=== PATIENT | male | born 1960 | race American Indian/Alaskan Native ===

== ENCOUNTER 2018-07-27 12:23 | Day surgery (SDC) | payer OTHER, SELFPAY ==
--- NOTE | 2018-07-27 12:43 | Emergency Department Report ---
Blank Doc - Documentation Documentation: This is a 58-year-old male that presents with chest pain with SOB. HX of card iac stents and NC. Last career specialist was a while ago due to the finacial expense. This initial assessment/diagnostic orders/clinical plan/treatment(s) is/are subject to change based on patient's health status, clinical progression and re- assessment by fellow clinical providers in the ED. Further treatment and workup at subsequent clinical providers discretion. Patient/guardians urged not to el ope from the ED as their condition may be serious if not clinically assessed and managed. Initial orders include: 1- Patient sent to MAIN ED for further evaluation and treatment 2- labs 3- EKG 4- CXR
[2018-07-27 13:11] LABS: Basophils % (Auto) 1.1 % (0.0-1.8); Eosinophils # (Auto) 0.1 K/mm3 (0.0-0.4); Eosinophils % (Auto) 1.5 % (0.0-4.3); Hematocrit 41.7 % (35.5-45.6); Hemoglobin 14.1 gm/dl (11.8-15.2); Lymphocytes # (Auto) 1.4 K/mm3 (1.2-5.4); Mean Corpuscular HGB Conc 34 % (32-34); Mean Corpuscular Volume 94 fl (84-94); Monocytes # (Auto) 0.5 K/mm3 (0.0-0.8); Monocytes % (Auto) 12.9 % (0.0-7.3); Platelet Count 239 K/mm3 (140-440); Red Blood Count 4.43 M/mm3 (3.65-5.03); Red Cell Distribution Width 13.7 % (13.2-15.2)
--- NOTE | 2018-07-27 13:11 | XRay Report ---
Chest 2 views: History: Chest pain. Findings: Normal cardiomediastinal silhouette the trachea is midline. No consolidation, pneumothorax or pleural effusion. Impression: No acute cardiopulmonary findings.
[2018-07-27 13:23] LABS: INR 0.93 (0.87-1.13); Partial Thromboplastin Time 27.3 Sec. (24.2-36.6)
[2018-07-27 13:35] LABS: BUN/Creatinine Ratio 9; Blood Urea Nitrogen 7 mg/dL (9-20); Calcium 8.7 mg/dL (8.4-10.2); Hemolysis Index 9
[2018-07-27 14:31] VITALS: BP 151/92
--- NOTE | 2018-07-27 14:32 | Emergency Department Report ---
ED Chest Pain HPI - General Chief Complaint: Chest Pain Stated Complaint: CHEST PAIN/DIZZY Time Seen by Provider: 07/27/18 12:41 Source: patient Mode of arrival: Ambulatory Limitations: No Limitations - History of Present Illness Initial Comments: Mr. Price is a 58 yo male who has hx of CO March s/p 3 stents, HTN. He presents today with indigestion type chest pain during exertion and at rest. No dyspnea. 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 DBP 117 mm HG according to his report. Juanita n was episodic today. MIld. He attributes the pain to new medication, steroids for eye injury which occurred 3 weeks ago, requiring 3 surgeries. Feels well now. Chest pain first occurred this morning 4 AM. MD Complaint: chest pain -: Gradual, This morning Onset: during rest, during exertion Pain Location: substernal Pain Radiation: none Severity: mild Severity scale (0 -10): 1 Quality: other (indigestion) Consistency: intermittent, now resolved Improves With: nothing Worsens With: nothing Treatments Prior to Arrival: none - Related Data Previous Rx's Medication Instructions Recorded Last Taken Type Aspirin [Aspirin BABY CHEW TAB] 81 mg PO QDAY #30 tab.chew 04/04/18 Unknown Rx AtorvaSTATin [Lipitor] 40 mg PO QHS #30 tablet 04/04/18 Unknown Rx ISOSORBIDE MONOnitrate [Imdur ER] 30 mg PO DAILY #30 tab.er.24h 04/04/18 Unknown Rx Lisinopril [Zestril TAB] 2.5 mg PO QDAY #30 tab 04/04/18 Unknown Rx Metoprolol [Lopressor TAB] 25 mg PO BID #60 tablet 04/04/18 Unknown Rx Ticagrelor [Brilinta] 90 mg PO BID #60 tablet 04/04/18 Unknown Rx Allergies Allergy/AdvReac Type Severity Reaction Status Date / Time Penicillins Allergy Unknown Verified 04/02/18 02:46 Heart Score - HEART Score History: Slightly suspicious EKG: Normal Age: 45-65 Risk factors: > 3 risk factors or hx of atherosclerotic disease Troponin: < normal limit HEART Score: 3 ED Review of Systems ROS: Stated complaint: CHEST PAIN/DIZZY Other details as noted in HPI Comment: All other systems reviewed and negative Constitutional: denies: fever, malaise Respiratory: denies: cough Cardiovascular: chest pain ED Past Medical Hx - Past Medical History Previous Medical History?: Yes Hx Hypertension: Yes Hx Heart Attack/AMI: Yes (3 stents) Additional medical history: elevated cholesterol - Surgical History Past Surgical History?: Yes Additional Surgical History: left eye injury at work - Social History Smoking Status: Never Smoker Substance Use Type: None - Medications Home Medications: Home Medications Medication Instructions Recorded Confirmed Last Taken Type Aspirin [Aspirin BABY CHEW TAB] 81 mg PO QDAY #30 tab.chew 04/04/18 Unknown Rx AtorvaSTATin [Lipitor] 40 mg PO QHS #30 tablet 04/04/18 Unknown Rx ISOSORBIDE MONOnitrate [Imdur ER] 30 mg PO DAILY #30 tab.er.24h 04/04/18 Unknown Rx Lisinopril [Zestril TAB] 2.5 mg PO QDAY #30 tab 04/04/18 Unknown Rx Metoprolol [Lopressor TAB] 25 mg PO BID #60 tablet 04/04/18 Unknown Rx Ticagrelor [Brilinta] 90 mg PO BID #60 tablet 04/04/18 Unknown Rx ED Physical Exam - General Limitations: No Limitations General appearance: alert, in no apparent distress - Head Head exam: Present: atraumatic, normocephalic - Eye Eye exam: Present: normal appearance - ENT ENT exam: Present: mucous membranes moist - Neck Neck exam: Present: normal inspection, full ROM - Respiratory Respiratory exam: Present: normal lung sounds bilaterally. Absent: respiratory distress, wheezes, rales, rhonchi - Cardiovascular Cardiovascular Exam: Present: regular rate, normal rhythm, normal heart sounds. Absent: systolic murmur, diastolic murmur, rubs, gallop - GI/Abdominal GI/Abdominal exam: Present: soft, normal bowel sounds. Absent: distended, tenderness, guarding, rebound - Rectal Rectal exam: Present: deferred - Extremities Exam Extremities exam: Present: normal inspection - Back Exam Back exam: Present: normal inspection - Neurological Exam Neurological exam: Present: alert, oriented X3 - Psychiatric Psychiatric exam: Present: normal affect, normal mood - Skin Skin exam: Present: warm, dry, intact, normal color. Absent: rash ED Course Vital Signs 07/27/18 12:39 Temperature 98.1 F Pulse Rate 61 Respiratory 16 Rate Blood Pressure 156/95 O2 Sat by Pulse 98 Oximetry CHRIS score - Chris Score Age > 65: (0) No Aspirin use within the Past 7 Days: (0) No 3 or more CAD Risk Factors: (0) No 2 or more Angina events in past 24 hrs: (0) No Known CAD with more than 50% Stenosis: (0) No Elevated Cardiac Markers: (0) No ST Deviation Greater than 0.5mm: (1) Yes CHRIS Score: 1 ED Medical Decision Making - Lab Data Result diagrams: 07/27/18 12:54 07/27/18 12:54 Laboratory Results - last 24 hr 07/27/18 07/27/18 07/27/18 12:54 12:54 12:54 WBC 3.9 L RBC 4.43 Hgb 14.1 Hct 41.7 MCV 94 MCH 32 MCHC 34 RDW 13.7 Plt Count 239 Lymph % (Auto) 36.0 H [place] % (Auto) 12.9 H Eos % (Auto) 1.5 Baso % (Auto) 1.1 Lymph # 1.4 [place] # 0.5 Eos # 0.1 Baso # 0.0 Seg Neutrophils % 48.5 Seg Neutrophils # 1.9 PT 13.0 INR 0.93 APTT 27.3 Sodium 139 Potassium 4.2 Chloride 99.0 Carbon Dioxide 28 Anion Gap 16 BUN 7 L Creatinine 0.8 Estimated GFR > 60 BUN/Creatinine Ratio 9 Glucose 92 Calcium 8.7 Troponin T < 0.010 - EKG Data 07/27/18 14:26 NSR rate 60 bpm left axis no ST elevation no signs of ischemia inferior q waves - Radiology Data Radiology results: report reviewed nap portable chest - Medical Decision Making Mr. Price presents mild indigestion atypical for ACS. serial troponins x 2 negative recent STEMI, RCA stented, multivessel disease on cardiac cath 03/2018 According to recent cardiology evaluation, Mr. Price has nonobstructive disease of the proximal LAD. Medical therapy and aggressive risk modification recommended at that time for optimal care of atherosclerosis Mr. Price has been compliant with his medication. He is appropriately vigilant with hypertension with consideration of adverse effect of steroids. Blood pressure today is 156/97 which is elevated compared to previous blood pressure 124/73 documented in March. I explained that if he decides to continue with prednisone, he should either take a second dose of lisinopril. He understands to call 911 if chest pain recurs. Critical care attestation.: If time is entered above; I have spent that time in minutes in the direct care of this critically ill patient, excluding procedure time. ED Disposition Clinical Impression: Chest pain, Adverse effects of medication, Hypertensive urgency, History of CO (myocardial infarction) Disposition: DC-01 TO HOME OR SELFCARE Is pt being admited?: No Does the pt Need Aspirin: No Condition: Stable Instructions: Chest Pain (ED) Additional Instructions: Please increase your lisinopril dose if you decide to continue steroid therapy.
[2018-07-27 15:34] LABS: Bilirubin,Urine NEG (Negative); Blood,Urine NEG (Negative); Color,Urine Straw (Yellow); Protein,Urine <15 mg/dL mg/dL (Negative); Urobilinogen,Urine < 2.0 mg/dL (<2.0)
== END 2018-07-27 15:34 | disposition home or self-care (01) ==
LOC: ED 12:23 → CATH 12:23 → EDSTATUS 14:07 → ED 15:35
PROVIDERS: ATTEND Emergency Medicine
DX: R07.89 Other chest pain (principal); T50.905A Adverse effect of unspecified drugs, medicaments and biological substances, initial encounter; I16.0 Hypertensive urgency; I25.2 Old myocardial infarction; I10 Essential (primary) hypertension; E78.00 Pure hypercholesterolemia, unspecified; Z88.0 Allergy status to penicillin; Y92.89 Other specified places as the place of occurrence of the external cause
CPT/HCPCS: 36415; 71046; 80048; 81001; 84484; 85025; 85610; 85730; 93005; 93010

== ENCOUNTER 2018-07-29 09:24 | Inpatient (IN) | payer SELFPAY ==
--- NOTE | 2018-07-29 09:30 | Emergency Department Report ---
ED General Adult HPI - General Chief complaint: Chest Pain Stated complaint: POSS STEMI Time Seen by Provider: 07/29/18 09:30 Source: EMS Mode of arrival: Stretcher Limitations: No Limitations - History of Present Illness Initial comments: This is a 58-year-old male with a history of STEMI 04/02/2018. Although he states he had 3 stents placed, it appears he had an RCA stent and LAD disease for which medical management was recommended. He was cared for by Gisela Mckay at that time. The patient states that approximately one hour prior to his arrival he developed substernal chest pressure which radiated to his right arm. This was associated with diaphoresis nausea vomiting. He was transported to this facility via medics who gave him 320 40 g of aspirin as well as nitroglycerin. There was some benefit. He arrives at the emergency department with persistent pain. His prehospital EKG was consistent with hyperacute T-wave syndrome affecting the anteroseptal leads with reciprocal changes. Therefore a code STEMI was called. I spoke to Dr. Rubio who concurred with this management. On arrival the patient did look slightly clammy but not diaphoretic. He stated he did have some persistent pressure. He was being prepared for cardiac catheterization. A 12-lead EKG was obtained which interestingly did show improvement of his ST segment elevation in the septal leads as well as his reciprocal changes. -: Gradual Associated Symptoms: denies other symptoms - Related Data Previous Rx's Medication Instructions Recorded Last Taken Type Aspirin [Aspirin BABY CHEW TAB] 81 mg PO QDAY #30 tab.chew 04/04/18 Unknown Rx AtorvaSTATin [Lipitor] 40 mg PO QHS #30 tablet 04/04/18 Unknown Rx ISOSORBIDE MONOnitrate [Imdur ER] 30 mg PO DAILY #30 tab.er.24h 04/04/18 Unknown Rx Lisinopril [Zestril TAB] 2.5 mg PO QDAY #30 tab 04/04/18 Unknown Rx Metoprolol [Lopressor TAB] 25 mg PO BID #60 tablet 04/04/18 Unknown Rx Ticagrelor [Brilinta] 90 mg PO BID #60 tablet 04/04/18 Unknown Rx Allergies Allergy/AdvReac Type Severity Reaction Status Date / Time Penicillins Allergy Unknown Verified 04/02/18 02:46 ED Review of Systems ROS: Stated complaint: POSS STEMI Other details as noted in HPI Constitutional: denies: chills, fever Eyes: denies: eye pain, eye discharge, vision change ENT: denies: ear pain, throat pain Respiratory: denies: cough, shortness of breath, wheezing Cardiovascular: chest pain. denies: palpitations Endocrine: no symptoms reported Gastrointestinal: denies: abdominal pain, nausea, diarrhea Genitourinary: denies: urgency, dysuria Musculoskeletal: denies: back pain, joint swelling, arthralgia Skin: denies: rash, lesions Neurological: denies: headache, weakness, paresthesias Psychiatric: denies: anxiety, depression Hematological/Lymphatic: denies: easy bleeding, easy bruising ED Past Medical Hx - Past Medical History Previous Medical History?: Yes Hx Hypertension: Yes Hx Heart Attack/AMI: Yes (3 stents) Additional medical history: elevated cholesterol - Surgical History Past Surgical History?: Yes Additional Surgical History: left eye injury at work. Patient states that he sustained trauma to his left eye 2 weeks ago which required surgery. He cannot be more specific as to the type of injury he sustained. - Social History Smoking Status: Never Smoker Substance Use Type: None - Medications Home Medications: Home Medications Medication Instructions Recorded Confirmed Last Taken Type Aspirin [Aspirin BABY CHEW TAB] 81 mg PO QDAY #30 tab.chew 04/04/18 Unknown Rx AtorvaSTATin [Lipitor] 40 mg PO QHS #30 tablet 04/04/18 Unknown Rx ISOSORBIDE MONOnitrate [Imdur ER] 30 mg PO DAILY #30 tab.er.24h 04/04/18 Unknown Rx Lisinopril [Zestril TAB] 2.5 mg PO QDAY #30 tab 04/04/18 Unknown Rx Metoprolol [Lopressor TAB] 25 mg PO BID #60 tablet 04/04/18 Unknown Rx Ticagrelor [Brilinta] 90 mg PO BID #60 tablet 04/04/18 Unknown Rx ED Physical Exam - General Limitations: No Limitations General appearance: alert, in no apparent distress - Head Head exam: Present: atraumatic, normocephalic - Eye Eye exam: Present: other (eye patch. He cannot open left eye to examine). Absent: scleral icterus - ENT ENT exam: Present: mucous membranes moist, other (eye patch O.S.) - Neck Neck exam: Present: normal inspection - Respiratory Respiratory exam: Present: normal lung sounds bilaterally. Absent: respiratory distress - Cardiovascular Cardiovascular Exam: Present: regular rate, normal rhythm. Absent: systolic murmur, diastolic murmur, rubs, gallop - GI/Abdominal GI/Abdominal exam: Present: soft, normal bowel sounds. Absent: distended, tenderness, guarding, rebound, rigid - Rectal Rectal exam: Present: deferred - Extremities Exam Extremities exam: Present: normal inspection - Back Exam Back exam: Present: normal inspection. Absent: CVA tenderness (R), CVA tenderness (L) - Neurological Exam Neurological exam: Present: alert, oriented X3, CN II-XII intact. Absent: motor sensory deficit - Psychiatric Psychiatric exam: Present: normal affect, normal mood - Skin Skin exam: Present: warm, dry, intact, normal color. Absent: rash ED Course Vital Signs 07/29/18 07/29/18 07/29/18 09:28 09:30 09:45 Temperature 98.1 F Pulse Rate 61 Respiratory 18 16 Rate Blood Pressure 148/98 151/106 166/112 Blood Pressure 151/106 [Left] O2 Sat by Pulse 100 100 Oximetry - Reevaluation(s) Reevaluation #1: Patient sent Lab further evaluation by Dr. Rubio stable condition 07/29/18 09:44 ED Medical Decision Making - EKG Data -: EKG Interpreted by Me EKG shows normal: sinus rhythm - EKG Data Interpretation: other (consistent with anteroseptal ST elevation GA) Critical Care Time: Yes Critical care time in (mins) excluding proc time.: 30 Critical care attestation.: If time is entered above; I have spent that time in minutes in the direct care of this critically ill patient, excluding procedure time. ED Disposition Clinical Impression: ST elevation GA (STEMI) Qualifiers: Involved coronary artery: unspecified coronary artery Qualified Code(s): I21.3 - ST elevation (STEMI) myocardial infarction of unspecified site Disposition: -09 OP ADMIT IP TO THIS HOSP Is pt being admited?: Yes Does the pt Need Aspirin: Yes Condition: Stable Time of Disposition: 09:46
[2018-07-29] MEDS ORDERED: ZOFRAN ONE (09:32)
[2018-07-29] MEDS ORDERED: NITRO-BID 2% TP ONE ×2 (09:32→09:52)
[2018-07-29] MEDS ORDERED: MORPHINE ONE ×2 (09:32→13:58)
[2018-07-29] MEDS ORDERED: ZOFRAN IV ONE (09:52)
[2018-07-29] MEDS ORDERED: MORPHINE IV ONE (09:52)
[2018-07-29] MEDS ORDERED: VERSED ONE (10:04)
[2018-07-29] MEDS ORDERED: HEPARIN/NS 5000 UNIT/500ML(CATH LAB) 1,000 ML IR ONE (10:04)
[2018-07-29] MEDS ORDERED: XYLOCAINE 2% INFILTRATI ONE (10:06)
[2018-07-29] MEDS ORDERED: NITROGLYCERIN SYRINGE 3 ML ONE (10:06)
[2018-07-29] MEDS ORDERED: SUBLIMAZE ONE (10:06)
[2018-07-29] MEDS ORDERED: NACL 0.9% 500 ML 500 ML ONE (10:06)
[2018-07-29] MEDS ORDERED: CALAN ONE (10:06)
[2018-07-29] MEDS: HEPARIN 10,000 UNITS/10 ML ONE ×2 (10:19→10:25)
[2018-07-29] MEDS ORDERED: HEPARIN/ 0.45% NACL-25,000 UNIT/500 ML 25,000 UNIT/500 ML BAG ONE (10:50)
[2018-07-29] MEDS ORDERED: HEPARIN/NS 5000 UNIT/500ML(CATH LAB) 500 ML IR ONE (10:50)
[2018-07-29 10:51] LABS: Hematocrit 40.6 % (35.5-45.6); Hemoglobin 13.8 gm/dl (11.8-15.2); INR 0.89 (0.87-1.13); Mean Corpuscular HGB Conc 34 % (32-34); Mean Corpuscular Volume 94 fl (84-94); Platelet Count 272 K/mm3 (140-440); Red Blood Count 4.33 M/mm3 (3.65-5.03); Red Cell Distribution Width 13.6 % (13.2-15.2)
[2018-07-29 10:52] LABS: Partial Thromboplastin Time 24.9 Sec. (24.2-36.6)
[2018-07-29] MEDS ORDERED: HEPARIN 10,000 UNITS/10 ML ONE (10:53)
[2018-07-29] MEDS ORDERED: AGGRASTAT DRIP (12.5 MG/250 ML) 12,500 MCG/250 ML BAG IV ONE (10:53)
[2018-07-29 10:57] LABS: Creatine Kinase MB 4.9 ng/mL (0.0-4.0)
[2018-07-29 10:58] LABS: BUN/Creatinine Ratio 15; Blood Urea Nitrogen 12 mg/dL (9-20); Calcium 8.7 mg/dL (8.4-10.2); Hemolysis Index 4
[2018-07-29 10:59] LABS: Alanine Aminotransferase 23 units/L (7-56); Albumin 4.4 g/dL (3.9-5); BUN/Creatinine Ratio 15; Blood Urea Nitrogen 12 mg/dL (9-20); Calcium 8.7 mg/dL (8.4-10.2); Hemolysis Index 4
[2018-07-29 11:01] LABS: Alanine Aminotransferase 23 units/L (7-56); Albumin 4.3 g/dL (3.9-5)
[2018-07-29 11:05] LABS: Bilirubin,Direct < 0.2 mg/dL (0-0.2)
--- NOTE | 2018-07-29 11:12 | Event Note ---
Date: 07/29/18 consult and cath dictated d/w Dr. Wild ([place] pt)
[2018-07-29] MEDS: EFFIENT PO ONE ×2 (11:16→11:20)
[2018-07-29] MEDS: ALUM-MAG HYDROX-SIMETH 200-200-20MG/5ML ONE ×2 (11:16→11:20)
--- NOTE | 2018-07-29 11:45 | Event Note ---
Date: 07/29/18 Pt just notified me that he had recent left eye surgery. He is unclear of the details. I evaluated his eye - no evidence of bleeding at this time. Will continue to watch this. Have CCU staff monitor closely.
--- NOTE | 2018-07-29 13:18 | Cardiac Catherization Report ---
CARDIAC CATHETERIZATION PRIMARY PUBLIC HEALTH DIETITIAN: Dr. To. REFERRING PHYSICIAN: Dr. Kumar. INDICATION FOR PROCEDURE: The patient is a 58-year-old -[place] gentleman with history of PCI of the right coronary presents with anterior ST elevation myocardial infarction. STEMI protocol initiated. Heparin and aspirin loaded. PROCEDURE IN DETAIL: The patient was brought to the laborer tanbark in urgent fashion, loaded with heparin and aspirin, and prepped and draped in sterile fashion. An 8 mL of 2% lidocaine used to anesthetize the right groin. A standard 6-[place] hydrophilic sheath used to cannulate the right common femoral artery via modified Seldinger technique. All exchanges performed to exchange a J-tip guidewire. JL3.5 catheter used to engage the left main. No damping or ventricularization. Cineangiography performed in multiple projections. JR4 catheter used to cross the aortic valve under fluoroscopic guidance. Left ventriculography performed in 30 WRIGHT and 30 AUDRA projections via hand injections. Catheter flushed. Manual pullback performed with continuous pressure monitoring. Catheter used to engage the right coronary. No damping or ventricularization. Cineangiography performed in multiple projections. I directly supervised the administration of moderate sedation from 10:12-11:00 a.m. with fentanyl and Versed. DATA: Aortic pressure is 140/80, LV pressure is 140, LVEDP of 30 mmHg. Left ventriculography reveals severe anterior and anteroapical dyskinesis. Ejection fraction estimated at 30-35%. CORONARY ANATOMY: This is a right dominant system. Right coronary is a large vessel, courses AV groove, distally bifurcates into posterolateral and posteromedial branches. There is a 90% ostial posterolateral stenosis through jailed stent but multiple stents in the proximal RCA and right PDA are patent. Collaterals are noted to the LAD. Left main is patent, bifurcates the left anterior descending and left circumflex. Left circumflex is a moderate sized vessel, courses AV groove. There is a 25% mid left circumflex stenosis. LAD has atherothrombotic occlusion proximally. At this point, we turned our attention to PCI. Heparin loaded, single bolus of Aggrastat. Labs are pending. Abnormal ACT is confirmed. The patient loaded with aspirin. This is a bifurcation lesion. We wired the moderate sized diagonal with a Prowater wire. We used a BMW wire to wire the true LAD, ballooned the LAD on the BMW wire. ROSEMARIE 3 flow returned. I used a 2.75 x 26 Jayme drug-eluting stent into the LAD. Excellent angiographic result. The diagonal was pinched but patent and with ROSEMARIE 3 flow. I did not believe provisional stenting or ballooning is necessary at this point and the risk likely outweighs the benefit. At this point, intravascular ultrasound was performed and multiple passes were made, reveals a apposed well expanded stent, mild disease in the proximal LAD and left main. No dissection, no complications identified, ROSEMARIE 3 flow throughout. Given significant LV dysfunction, elevated LVEDP, proximal LAD occlusion, I decided to put an intraaortic balloon pump under fluoroscopic guidance. At this point, the patient is clinically stable, chest pain free, electrical and hemodynamically stable. CONCLUSIONS: 1. Acute atherothrombotic occlusion of the proximal LAD in the setting of an anterior ST elevation myocardial infarction. 2. Successful IVUS guided PCI of the proximal LAD with placement of drug-eluting stent ([place] 2.75 x 26) with excellent final angiographic and ultrasonographic results, ROSEMARIE 3 flow, 0% residual stenosis. 4. Left ventriculography reveals severe anterior and anteroapical dyskinesis. Ejection fraction of 30-35%. 5. Patent stents in the right coronary with 90% jailed posterolateral branch. 6. Successful intraaortic balloon pump placement. Continue aspirin. We will add Effient. He was on Brilinta in the past. I had a long discussion regarding medication compliance, IV heparin due to balloon pump placement. The patient is clinically stable, chest pain free, doing well. We will discuss with [facility] as this patient is known to them. Follow up labs. Results of procedure explained in length to the patient and family. All questions and concerns were addressed. JOB# [id number] SBConcepcion/[id number]
--- NOTE | 2018-07-29 13:43 | History and Physical Report ---
History of Present Illness Date of examination: 07/29/18 Date of admission: 07/29/18 09:53 Chief complaint: Chest pain History of present illness: 58-year-old male with a history of STEMI 04/02/2018 comes in for CP one hour prior to his arrival. He developed substernal chest pressure which radiated to his right arm. This was associated with diaphoresis nausea vomiting. He was transported to this facility via medics who gave him 320 40 g of aspirin as well as nitroglycerin. Some improvement in his symptoms. He arrives at the emergency department with persistent pain. His prehospital EKG was consistent with hyperacute T-wave syndrome affecting the anteroseptal leads with reciprocal changes. Therefore a code STEMI was called. patient being taken to medical laboratory technicians for PCI by Dr Anuel Rubio. On arrival the patient did look slightly clammy but not diaphoretic. He stated he did have some persistent pressure. He was being prepared for cardiac catheterization. A 12-lead EKG was obtained which interestingly did show improvement of his ST segment elevation in the septal leads as well as his reciprocal changes. Past Medical History Previous Medical History?: Yes Hx Hypertension: Yes Hx Heart Attack/AMI: Yes (3 stents) Additional medical history: elevated cholesterol Surgical History Past Surgical History?: Yes Additional Surgical History: left eye injury at work. Patient states that he sustained trauma to his left eye 2 weeks ago which required surgery. He cannot be more specific as to the type of injury he sustained. Social History Smoking Status: Never Smoker Substance Use Type: None Medications Home Medications: Home Medications Medication Instructions Recorded Confirmed Last Taken Type Aspirin [Aspirin BABY CHEW TAB] 81 mg PO QDAY #30 tab.chew 04/04/18 Unknown Rx AtorvaSTATin [Lipitor] 40 mg PO QHS #30 tablet 04/04/18 Unknown Rx ISOSORBIDE MONOnitrate [Imdur ER] 30 mg PO DAILY #30 tab.er.24h 04/04/18 Unknown Rx Lisinopril [Zestril TAB] 2.5 mg PO QDAY #30 tab 04/04/18 Unknown Rx Metoprolol [Lopressor TAB] 25 mg PO BID #60 tablet 04/04/18 Unknown Rx Ticagrelor [Brilinta] 90 mg PO BID #60 tablet 04/04/18 Unknown Rx Review of Systems ROS: Stated complaint: POSS STEMI Other details as noted in HPI Constitutional: denies: chills, fever Eyes: denies: eye pain, eye discharge, vision change ENT: denies: ear pain, throat pain Respiratory: denies: cough, shortness of breath, wheezing Cardiovascular: chest pain. denies: palpitations Endocrine: no symptoms reported Gastrointestinal: denies: abdominal pain, nausea, diarrhea Genitourinary: denies: urgency, dysuria Musculoskeletal: denies: back pain, joint swelling, arthralgia Skin: denies: rash, lesions Neurological: denies: headache, weakness, paresthesias Psychiatric: denies: anxiety, depression Hematological/Lymphatic: denies: easy bleeding, easy bruising Medications and Allergies Allergies Allergy/AdvReac Type Severity Reaction Status Date / Time Penicillins Allergy Unknown Verified 04/02/18 02:46 Home Medications Medication Instructions Recorded Confirmed Last Taken Type Aspirin [Aspirin BABY CHEW TAB] 81 mg PO QDAY #30 tab.chew 04/04/18 07/29/18 07/29/18 Rx AtorvaSTATin [Lipitor] 40 mg PO QHS #30 tablet 04/04/18 07/29/18 1 Week Ago Rx ~07/22/18 ISOSORBIDE MONOnitrate [Imdur ER] 30 mg PO DAILY #30 tab.er.24h 04/04/18 07/29/18 1 Week Ago Rx ~07/22/18 Lisinopril [Zestril TAB] 2.5 mg PO QDAY #30 tab 04/04/18 07/29/18 1 Week Ago Rx ~07/22/18 Metoprolol [Lopressor TAB] 25 mg PO BID #60 tablet 04/04/18 07/29/18 1 Day Ago Rx ~07/28/18 Ticagrelor [Brilinta] 90 mg PO BID #60 tablet 04/04/18 07/29/18 2 Days Ago Rx ~07/27/18 Brimonidine/Timolol 0.2-0.5% 1 drops OP TID 07/29/18 07/29/18 07/29/18 12:00 History [Combigan 0.2-0.5%] Active Meds: Active Medications Aspirin (Baby Aspirin) 81 mg PO QDAY [facility] Atorvastatin Calcium (Lipitor) 40 mg PO QHS [place] Prasugrel (Effient) 10 mg PO QDAY [facility] Exam - Constitutional Vitals: Temp Pulse Resp BP Pulse Ox 97.8 F 72 20 140/91 100 07/29/18 12:23 07/29/18 13:00 07/29/18 13:00 07/29/18 13:00 07/29/18 13:00 General appearance: Present: no acute distress, well-nourished - EENT Eyes: Present: PERRL ENT: hearing intact, clear oral mucosa - Neck Neck: Present: supple, normal ROM - Respiratory Respiratory effort: normal Respiratory: bilateral: CTA - Cardiovascular Heart rate: 78 Rhythm: regular Heart Sounds: Present: S1 & S2. Absent: rub, click - Extremities Extremities: no ischemia, pulses intact, pulses symmetrical, No edema Peripheral Pulses: within normal limits - Abdominal General gastrointestinal: Present: soft, non-tender, non-distended, normal bowel sounds Male genitourinary: Present: normal - Rectal Rectal Exam: deferred - Integumentary Integumentary: Present: clear, warm, dry - Musculoskeletal Musculoskeletal: gait normal, strength equal bilaterally - Psychiatric Psychiatric: appropriate mood/affect, intact judgment & insight - Neurologic Neurologic: CNII-XII intact, moves all extremities Results - Labs CBC & Chem 7: 07/30/18 02:55 07/30/18 02:55 Labs: Laboratory Last Values WBC 5.0 K/mm3 (4.5-11.0) 07/29/18 09:23 RBC 4.33 M/mm3 (3.65-5.03) 07/29/18 09:23 Hgb 13.8 gm/dl (11.8-15.2) 07/29/18 09:23 Hct 40.6 % (35.5-45.6) 07/29/18 09:23 MCV 94 fl (84-94) 07/29/18 09:23 MCH 32 pg (28-32) 07/29/18 09:23 MCHC 34 % (32-34) 07/29/18 09:23 RDW 13.6 % (13.2-15.2) 07/29/18 09:23 Plt Count 272 K/mm3 (140-440) 07/29/18 09:23 Baso % (Auto) [place] 07/29/18 09:23 PT 12.6 Sec. (12.2-14.9) 07/29/18 09:23 INR 0.89 (0.87-1.13) 07/29/18 09:23 APTT 24.9 Sec. (24.2-36.6) 07/29/18 09:23 Sodium 140 mmol/L (137-145) 07/29/18 09:23 Potassium 3.9 mmol/L (3.6-5.0) 07/29/18 09:23 Chloride 102.8 mmol/L (98-107) 07/29/18 09:23 Carbon Dioxide 27 mmol/L (22-30) 07/29/18 09:23 Anion Gap 14 mmol/L 07/29/18 09:23 BUN 12 mg/dL (9-20) 07/29/18 09:23 Creatinine 0.8 mg/dL (0.8-1.5) 07/29/18 09:23 Estimated GFR > 60 ml/min 07/29/18 09:23 BUN/Creatinine Ratio 15 % 07/29/18 09:23 Glucose 138 mg/dL (75-100) H 07/29/18 09:23 Calcium 8.7 mg/dL (8.4-10.2) 07/29/18 09:23 Total Bilirubin 0.50 mg/dL (0.1-1.2) 07/29/18 09:23 Direct Bilirubin < 0.2 mg/dL (0-0.2) 07/29/18 09:23 AST 18 units/L (5-40) 07/29/18 09:23 ALT 23 units/L (7-56) 07/29/18 09:23 Alkaline Phosphatase 66 units/L (35-129) 07/29/18 09:23 Total Creatine Kinase 202 units/L (55-170) H 07/29/18 09:23 CK-MB (CK-2) 4.9 ng/mL (0.0-4.0) H 07/29/18 09:23 CK-MB (CK-2) Rel Index 2.4 (0-4) 07/29/18 09:23 Troponin T < 0.010 ng/mL (0.00-0.029) 07/29/18 09:23 Total Protein 7.2 g/dL (6.3-8.2) 07/29/18 09:23 Albumin 4.3 g/dL (3.9-5) 07/29/18 09:23 Albumin/Globulin Ratio 1.5 % 07/29/18 09:23 Blood Type O POSITIVE 07/29/18 09:23 Antibody Screen Negative 07/29/18 09:23 - Imaging and Cardiology EKG: report reviewed (STEMI Anterior) Assessment and Plan Advance Directives: Yes (FC) VTE prophylaxis?: Chemical Plan of care discussed with patient/family: Yes - Patient Problems (1) ST elevation PA (STEMI) Current Visit: Yes Status: Acute Qualifiers: Involved coronary artery: unspecified coronary artery Qualified Code(s): I21.3 - ST elevation (STEMI) myocardial infarction of unspecified site Plan to address problem: Had PCI and Stents Cardiac cath showed acute atherothrombotic occlusion of the proximal LAD in the setting of an anterior ST elevation myocardial infarction. Successful IVUS guided PCI of the proximal LAD with placement of drug-eluting stent with excellent final angiographic and ultrasonographic results, ROSEMARIE-3 flow, 0% residual stenosis. Left ventriculography revealed severe anterior and anteroseptal dyskinesis. Ejection fraction of 30-35%. Patent stents in the right coronary with 90% patency Successful intra-aortic balloon pump placement (2) Hypertension Current Visit: Yes Status: Chronic Qualifiers: Hypertension type: essential hypertension Qualified Code(s): I10 - Essential (primary) hypertension Plan to address problem: Continue antihypertensives and keep blood pressure under control (3) Coronary artery disease Current Visit: Yes Status: Chronic Qualifiers: Coronary Disease-Associated Artery/Lesion type: unspecified vessel or lesion type Plan to address problem: [facility] (4) Hyperlipidemia Current Visit: Yes Status: Chronic Qualifiers: Hyperlipidemia type: mixed hyperlipidemia Qualified Code(s): E78.2 - Mixed hyperlipidemia Plan to address problem: Statins to continue (5) DVT prophylaxis Current Visit: Yes Status: Acute Plan to address problem: Patient on IV heparin and GI prophylaxis
[2018-07-29] MEDS ORDERED: AMBIEN PO PRN (13:44)
[2018-07-29] MEDS ORDERED: TYLENOL PO PRN (13:44)
[2018-07-29] MEDS ORDERED: ZOFRAN IV PRN (13:44)
[2018-07-29] MEDS ORDERED: SODIUM CHLORIDE FLUSH SYRINGE 10 ML IV PRN (13:44)
[2018-07-29 14:50] LABS: Basophils % (Manual) 0 % (0.0-1.8); Platelet Estimate Consistent w Auto; RBC Morphology Normal; Total Cells Counted 100
--- NOTE | 2018-07-29 16:14 | XRay Report ---
EXAM: XR CHEST 1V AP HISTORY: Chest Pain TECHNIQUE: AP CXR dated 07/29/2018 at 3:01 PM. COMPARISON: None available. FINDINGS: The heart size and mediastinum are within normal limits. The lung castellanos and costophrenic angles are clear. There is no acute parenchymal infiltrate, pleural effusion, or pneumothorax seen. The visua lized bony structures are within normal limits. IMPRESSION: 1. No evidence for acute cardiopulmonary disease seen. This document is electronically signed by Joann Gonsalez MD., July 29 2018 04:13:02 PM ET
[2018-07-29 16:27] LABS: Chol/HDL Ratio 2.16 %
[2018-07-29 20:11] LABS: Hematocrit 43.6 % (35.5-45.6); Hemoglobin 14.6 gm/dl (11.8-15.2)
--- NOTE | 2018-07-29 21:04 | Consultation ---
CARDIOLOGY CONSULTATION PRIMARY LINE INSTALLER REPAIRER: Poncho To MD PRIMARY PHYSICIAN: Unknown. ER PHYSICIAN: Dr. Kumar. REASON FOR CONSULTATION: Advice regarding chest pain and anterior ST elevation. HISTORY OF PRESENT ILLNESS: The patient is a 58-year-old -Portuguese gentleman with history of inferior STEMI last year status post multiple stents in his right coronary, presents here with multiple hours of chest pain and anterior ST elevation. STEMI protocol initiated. The patient loaded with aspirin, heparin, seen at bedside, continuous diaphoretic, complains of 8/10 chest pain, looks in distress. States it has been going on for hours. No back pain, no hematochezia, melena, hemoptysis, hematemesis. Had a recent left eye surgery. PAST MEDICAL HISTORY: Apparently hypertension, hyperlipidemia. Unclear who his primary is. SOCIAL HISTORY: Nonsmoker, nondrinker. ALLERGIES: ALLERGIC TO PENICILLIN. MEDICATIONS: Inpatient and outpatient medications reviewed. REVIEW OF SYSTEMS: As per HPI. PHYSICAL EXAMINATION: VITAL SIGNS: Blood pressure is 110/80, he is afebrile. Tele reveals sinus rhythm. O2 sat is 99% on room air. GENERAL: This is a middle-aged -Portuguese male in some distress due to chest pain. Alert and oriented x 3. HEENT: Sclerae anicteric. PERRLA. NECK: Supple. No mass. No JVD. CHEST: Clear to auscultation bilaterally. Good air movement. CARDIOVASCULAR: Regular rhythm, S1, S2. ABDOMEN: Soft, nontender, nondistended. Normoactive bowel sounds in 4 quadrants. No mass or bruits. EXTREMITIES: No cyanosis, clubbing, edema. Good peripheral pulses. SKIN: Intact. No rashes. LABORATORY DATA: Labs are pending. EKG reveals hyperacute T waves anteriorly with mild ST elevation and reciprocal lateral changes. ASSESSMENT AND PLAN: The patient is a pleasant 58-year-old -Portuguese male: 1. Acute anterior ST elevation myocardial infarction: STEMI protocol initiated. Aspirin and heparin loaded. 2. History of inferior ST elevation myocardial infarction in 03/2018, status post percutaneous coronary intervention to right coronary. 3. Hypertension. 4. Hyperlipidemia. Currently, the patient stopped taking his medications. At this point, further plans will be contingent on catheterization results. Risks, benefits, alternatives discussed. We will proceed urgently to left heart catheterization. JOB# [id number] SBConcepcion/NTS
[2018-07-29] MEDS ORDERED: HEPARIN/ 0.45% NACL-25,000 UNIT/500 ML 25,000 UNIT/500 ML BAG IV SCH (22:00)
[2018-07-29 22:03] LABS: Hematocrit 39.6 % (35.5-45.6); Hemoglobin 13.5 gm/dl (11.8-15.2)
[2018-07-29] MEDS: SODIUM CHLORIDE FLUSH SYRINGE 10 ML IV SCH (22:06)
[2018-07-29] MEDS: PEPCID IV SCH (22:06)
[2018-07-29] MEDS: NACL 0.9% 1000 ML 1,000 ML IV SCH (22:08)
[2018-07-30] MEDS: MORPHINE IV PRN (01:55)
[2018-07-30 02:07] LABS: Bilirubin,Urine NEG (Negative); Blood,Urine NEG (Negative); Color,Urine Yellow (Yellow); Mucus,Urine FEW /HPF; Protein,Urine <15 mg/dL mg/dL (Negative); Urobilinogen,Urine < 2.0 mg/dL (<2.0); WBC,Urine < 1.0 /HPF (0.0-6.0)
[2018-07-30 02:16] LABS: Amphetamine Screen,Urine PRESUMPTIVE NEGATIVE; Benzodiazepines Screen,Urine PRESUMPTIVE NEGATIVE; Cannabinoid Screen,Urine PRESUMPTIVE NEGATIVE; Cocaine Screen,Urine PRESUMPTIVE NEGATIVE; Methadone Screen,Urine PRESUMPTIVE NEGATIVE; Opiate Screen,Urine PRESUMPTIVE NEGATIVE
[2018-07-30 04:28] LABS: Basophils % (Auto) 0.3 % (0.0-1.8); Eosinophils % (Auto) 0.6 % (0.0-4.3); Hemoglobin 13.4 gm/dl (11.8-15.2); Lymphocytes # (Auto) 1.1 K/mm3 (1.2-5.4); Lymphocytes % (Auto) 19.3 % (13.4-35.0); Mean Corpuscular HGB Conc 33 % (32-34); Mean Corpuscular Volume 94 fl (84-94); Monocytes # (Auto) 0.7 K/mm3 (0.0-0.8); Monocytes % (Auto) 12.7 % (0.0-7.3); Platelet Count 223 K/mm3 (140-440); Red Blood Count 4.25 M/mm3 (3.65-5.03); Red Cell Distribution Width 13.5 % (13.2-15.2)
[2018-07-30 04:46] LABS: Creatine Kinase MB 47.8 ng/mL (0.0-4.0)
[2018-07-30 04:50] LABS: BUN/Creatinine Ratio 11; Blood Urea Nitrogen 9 mg/dL (9-20); Calcium 8.8 mg/dL (8.4-10.2); Hemolysis Index 10
[2018-07-30] MEDS: DILAUDID IV PRN ×2 (05:51→09:00)
[2018-07-30] MEDS: PEPCID IV SCH ×2 (10:05→21:38)
[2018-07-30] MEDS: BABY ASPIRIN PO SCH (10:06)
--- NOTE | 2018-07-30 10:13 | Consultation ---
History of Present Illness Consult date: 07/30/18 Reason for consult: chest pain, other (STEMI) History of present illness: Called to evaluate case of phase 58-year-old -Dominican male, with recent chest pain, STEMI for critical care monitoring. Patient reported to go to [facility] but not the ICU. Per notes, presents with "history of STEMI 04/02/2018. Although he states he had 3 stents placed, it appears he had an RCA stent and LAD disease for which medical management was recommended. He was cared for by Gisela Mckay at that time. The patient states that approximately one hour prior to his arrival he developed substernal chest pressure which radiated to his right arm. This was associated with diaphoresis nausea vomiting. He was transported to this facility via medics who gave him 320 40 g of aspirin as well as nitroglycerin. There was some benefit. He arrives at the emergency department with persistent pain. His prehospital EKG was consistent with hyperacute T-wave syndrome affecting the anteroseptal leads with reciprocal changes. Therefore a code STEMI was called. I spoke to Dr. Rubio who concurred with this management. On arrival the patient did look slightly clammy but not diaphoretic. He stated he did have some persistent pressure. Cardiac catheterization, now on our to pump at unit. A 12-lead EKG was obtained which interestingly did show improvement of his ST segment elevation in the septal leads as well as his reciprocal changes. Also a heparin drip. Hospital before by cardiology, he had prior eye surgery. No visual, respiratory or chest complaints at the present time Medications and Allergies Allergies Allergy/AdvReac Type Severity Reaction Status Date / Time Penicillins Allergy Unknown Verified 04/02/18 02:46 Home Medications Medication Instructions Recorded Confirmed Last Taken Type Aspirin [Aspirin BABY CHEW TAB] 81 mg PO QDAY #30 tab.chew 04/04/18 07/29/18 07/29/18 Rx AtorvaSTATin [Lipitor] 40 mg PO QHS #30 tablet 04/04/18 07/29/18 1 Week Ago Rx ~07/22/18 ISOSORBIDE MONOnitrate [Imdur ER] 30 mg PO DAILY #30 tab.er.24h 04/04/1807/29 1 Week Ago Rx ~07/22/18 Lisinopril [Zestril TAB] 2.5 mg PO QDAY #30 tab 04/04/18 07/29/18 1 Week Ago Rx ~07/22/18 Metoprolol [Lopressor TAB] 25 mg PO BID #60 tablet 04/04/18 07/29/18 1 Day Ago Rx ~07/28/18 Ticagrelor [Brilinta] 90 mg PO BID #60 tablet 04/04/18 07/29/18 2 Days Ago Rx ~07/27/18 Brimonidine/Timolol 0.2-0.5% 1 drops OP TID 07/29/18 07/29/18 07/29/18 12:00 History [Combigan 0.2-0.5%] Active Meds: Active Medications Acetaminophen (Tylenol) 650 mg PO Q4H PRN PRN Reason: Pain MILD(1-3)/Fever >100.5/CASTILLO Aspirin (Baby Aspirin) 81 mg PO QDAY [facility] Last Admin: 07/30/18 10:06 Dose: 81 mg Documented by: Atorvastatin Calcium (Lipitor) 40 mg PO QHS [facility] Last Admin: 07/29/18 22:06 Dose: 40 mg Documented by: Famotidine (Pepcid) 20 mg IV BID [facility] Last Admin: 07/30/18 10:05 Dose: 20 mg Documented by: Hydromorphone HCl (Dilaudid) 0.5 mg IV Q3H PRN PRN Reason: Pain , Severe (7-10) Last Admin: 07/30/18 09:00 Dose: 0.5 mg Documented by: Sodium Chloride (Nacl 0.9% 1000 Ml) 1,000 mls @ 42 mls/hr IV DIRECT [facility] Last Admin: 07/29/18 22:08 Dose: 42 mls/hr Documented by: Heparin Sodium/Sodium Chloride (Heparin/ 0.45% Nacl-25,000 Unit/500 Ml) 25,000 unit in 500 mls @ 30 mls/hr IV TITR [facility]; Protocol Last Titration: 07/30/18 05:25 Dose: 1,100 units/hr, 22 mls/hr Documented by: Morphine Sulfate (Morphine) 2 mg IV Q2H PRN PRN Reason: MOD. PAIN Last Admin: 07/30/18 01:55 Dose: 2 mg Documented by: Ondansetron HCl (Zofran) 4 mg IV Q8H PRN PRN Reason: Nausea And Vomiting Prasugrel (Effient) 10 mg PO QDAY [facility] Sodium Chloride (Sodium Chloride Flush Syringe 10 Ml) 10 ml IV BID [facility] Last Admin: 07/29/18 22:06 Dose: 10 ml Documented by: Sodium Chloride (Sodium Chloride Flush Syringe 10 Ml) 10 ml IV PRN PRN PRN Reason: LINE FLUSH Zolpidem Tartrate (Ambien) 5 mg PO QHS PRN PRN Reason: Insomnia Review of Systems Constitutional: fatigue, no weight loss, no weight gain Cardiovascular: chest pain Respiratory: no cough, no cough with sputum, no excessive sputum, no hemoptysis, no shortness of breath, no dyspnea on exertion Gastrointestinal: no abdominal pain, no nausea, no vomiting, no diarrhea Physical Examination Vital signs: Vital Signs BP 148/98 07/29/18 09:28 General appearance: no acute distress, alert, other (obese) Eyes: non-icteric, other (OS covered) ENT: oropharynx moist Neck: supple, no JVD Ascultation: Bilateral: clear Cardiovascular: regular rate and rhythm, PVC's noted Gastrointestinal: normoactive bowel sounds, non-distended Integumentary: normal Extremities: pulses normal, other (RT aurtic pump in place,no bleeding) Musculoskeletal: no deformities Results - Laboratory Findings CBC and BMP: 07/30/18 02:55 07/30/18 02:55 PT/INR, D-dimer PT 12.6 Sec. (12.2-14.9) 07/29/18 09:23 INR 0.89 (0.87-1.13) 07/29/18 09:23 Abnormal lab findings: Abnormal Labs 07/29/18 07/29/18 07/29/18 09:23 09:23 09:23 [place] % (Auto) Lymph # Lymphocytes % (Manual) 40.0 H Monocytes % (Manual) 10.0 H Heparin Anti-Xa Level Glucose 136 H 138 H Hemoglobin A1c Total Creatine Kinase 202 H CK-MB (CK-2) 4.9 H CK-MB (CK-2) Rel Index Troponin T HDL Cholesterol 07/29/18 07/29/18 07/29/18 15:29 15:29 17:24 [place] % (Auto) Lymph # Lymphocytes % (Manual) Monocytes % (Manual) Heparin Anti-Xa Level Glucose Hemoglobin A1c 6.6 H Total Creatine Kinase CK-MB (CK-2) CK-MB (CK-2) Rel Index Troponin T 2.700 H* D 4.010 H* D HDL Cholesterol 60 H 07/29/18 07/30/18 07/30/18 17:24 02:55 02:55 [place] % (Auto) 12.7 H Lymph # 1.1 L Lymphocytes % (Manual) Monocytes % (Manual) Heparin Anti-Xa Level 1.02 H Glucose 101 H Hemoglobin A1c Total Creatine Kinase 757 H CK-MB (CK-2) 47.8 H CK-MB (CK-2) Rel Index 6.3 H Troponin T 2.890 H* D HDL Cholesterol 07/30/18 02:55 [place] % (Auto) Lymph # Lymphocytes % (Manual) Monocytes % (Manual) Heparin Anti-Xa Level 0.28 L Glucose Hemoglobin A1c Total Creatine Kinase CK-MB (CK-2) CK-MB (CK-2) Rel Index Troponin T HDL Cholesterol Assessment and Plan STEMI anterior TX -Acute occlusion at the proximal LAD with drug-eluting stent placement -Severe anterior and anterior apical dyskinesis with ejection fraction of 30-35 % -Intra-aortic balloon placement CAD Hyperlipidemia OS trauma with surgical repair Recommendations- Continue aortic pump per cardiology. Heparin infusion per cardiology Statin therapy, ASA therapy initiated Watch for bleeding, neurological changes Oxygen support if necessary and oxygen saturation noted below 92% DVT prophylaxis Thanks Discussed with patient in detail. All questions answered. Critical care time was 31 minutes of [id number]-htnu evaluation and coordination of care
[2018-07-30] MEDS: SODIUM CHLORIDE FLUSH SYRINGE 10 ML IV SCH ×2 (10:45→21:38)
--- NOTE | 2018-07-30 13:30 | Progress Note ---
Assessment and Plan 1. Acute anterior ST elevation myocardial infarction 2. Coronary artery disease status post previous inferior wall FL and PCI and stent 3. Hyperlipidemia 4. Essential hypertension Plan. Currently stable discontinue aortic balloon pump continue antiplatelet treatment isosorbide and beta blockers. Subjective Date of service: 07/30/18 Interval history: No cardiac symptoms Objective Vital Signs Temp Pulse Pulse Resp BP Pulse Ox 07/30/18 12:00 98.7 F 07/30/18 11:16 66 13 126/87 97 07/30/18 11:00 98.9 F 72 15 118/72 97 07/30/18 10:46 68 10 L 127/78 99 07/30/18 10:30 67 15 119/72 96 07/30/18 10:16 64 12 118/72 93 07/30/18 10:12 98 07/30/18 10:00 98.9 F 70 20 115/82 97 07/30/18 09:46 67 18 111/78 96 07/30/18 09:30 66 18 93/69 98 07/30/18 09:16 73 20 93/69 93 07/30/18 09:07 66 19 105/70 07/30/18 09:00 98.9 F 67 24 105/70 94 07/30/18 08:45 66 20 105/68 96 07/30/18 08:30 66 24 123/78 98 07/30/18 08:16 67 10 L 116/76 99 07/30/18 08:00 98.9 F 74 9 L 129/71 95 07/30/18 07:46 65 11 L 129/69 96 07/30/18 07:30 70 12 129/71 86 07/30/18 07:15 67 21 129/71 97 07/30/18 07:00 70 14 129/81 97 07/30/18 06:46 66 14 124/84 96 07/30/18 06:30 66 15 123/80 97 07/30/18 06:16 64 20 122/78 95 07/30/18 06:00 97.8 F 65 21 124/79 96 07/30/18 05:46 70 19 119/72 96 07/30/18 05:30 66 22 119/72 98 07/30/18 05:16 68 21 114/65 97 07/30/18 05:00 65 23 125/82 98 07/30/18 04:46 68 22 115/86 98 07/30/18 04:30 72 12 118/78 93 07/30/18 04:16 63 20 118/78 98 07/30/18 04:00 97.8 F 66 22 112/66 97 07/30/18 03:45 63 22 112/66 95 07/30/18 03:30 72 15 119/74 96 07/30/18 03:16 63 16 119/74 96 07/30/18 03:00 61 17 123/73 97 07/30/18 02:46 64 20 122/72 99 07/30/18 02:30 66 18 113/75 98 07/30/18 02:16 65 21 123/73 95 07/30/18 02:00 67 22 116/71 98 07/30/18 01:46 67 22 117/71 96 07/30/18 01:30 71 12 119/73 07/30/18 01:16 74 21 119/73 97 07/30/18 01:00 71 12 113/80 96 07/30/18 00:45 66 22 113/80 98 07/30/18 00:30 67 18 109/68 92 07/30/18 00:16 68 19 115/72 98 07/30/18 00:00 98.6 F 69 19 121/75 95 07/29/18 23:46 71 18 127/79 96 07/29/18 23:30 70 23 124/86 96 07/29/18 23:28 68 23 124/76 97 07/29/18 23:15 73 20 124/76 98 07/29/18 23:00 85 15 121/77 96 07/29/18 22:46 74 22 121/77 97 07/29/18 22:30 72 22 125/84 96 07/29/18 22:16 68 22 128/86 98 07/29/18 22:00 72 19 130/85 99 07/29/18 21:46 68 22 135/79 99 07/29/18 21:30 68 22 130/82 81 L 07/29/18 21:16 68 18 130/82 98 07/29/18 21:00 65 17 137/91 96 07/29/18 20:56 98 07/29/18 20:45 69 13 137/91 99 07/29/18 20:30 71 11 L 140/88 97 07/29/18 20:26 67 12 99 07/29/18 20:00 99.0 F 67 15 134/89 98 07/29/18 19:59 66 14 134/89 98 07/29/18 19:00 99.0 F 66 19 143/93 98 07/29/18 18:00 97.8 F 62 22 144/82 97 07/29/18 17:00 22 144/82 97 07/29/18 16:00 62 64 18 143/89 98 07/29/18 15:00 62 20 137/87 98 07/29/18 14:00 64 64 20 141/91 99 07/29/18 13:30 62 20 140/91 99 - Physical Examination General: Appears Well, No Apparent Distress HEENT: Positive: Other (Left eye patch) Neck: Cardiac: Lungs: Neuro: Abdomen: /Rectal: Normal Prostate, No Masses Skin: Musculoskeletal: No Fluid Collection, No Pain, Normal Range of Motion Gait: Normal Gait Extremities: - Labs and Meds Cardiac Enzymes 07/30/18 Range/Units 02:55 CK-MB (CK-2) 47.8 H (0.0-4.0) ng/mL Lipids 07/29/18 Range/Units 15:29 Triglycerides 36 (2-149) mg/dL Cholesterol 130 (50-199) mg/dL HDL Cholesterol 60 H (40-59) mg/dL Cholesterol/HDL Ratio 2.16 % CBC 07/29/18 07/29/18 07/30/18 Range/Units 19:41 21:42 02:55 WBC 5.4 (4.5-11.0) K/mm3 RBC 4.25 (3.65-5.03) M/mm3 Hgb 14.6 13.5 13.4 (11.8-15.2) gm/dl Hct 43.6 39.6 40.0 (35.5-45.6) % Plt Count 223 (140-440) K/mm3 Lymph # 1.1 L (1.2-5.4) K/mm3 [place] # 0.7 (0.0-0.8) K/mm3 Eos # 0.0 (0.0-0.4) K/mm3 Baso # 0.0 (0.0-0.1) K/mm3 Comprehensive Metabolic Panel 07/30/18 Range/Units 02:55 Sodium 140 (137-145) mmol/L Potassium 3.6 (3.6-5.0) mmol/L Chloride 102.1 (98-107) mmol/L Carbon Dioxide 28 (22-30) mmol/L BUN 9 (9-20) mg/dL Creatinine 0.8 (0.8-1.5) mg/dL Glucose 101 H (75-100) mg/dL Calcium 8.8 (8.4-10.2) mg/dL
--- NOTE | 2018-07-30 14:04 | Progress Note ---
Assessment and Plan - Patient Problems (1) ST elevation [place] (STEMI) Current Visit: Yes Status: Acute Qualifiers: Involved coronary artery: unspecified coronary artery Qualified Code(s): I21.3 - ST elevation (STEMI) myocardial infarction of unspecified site Plan to address problem: Had PCI and Stents Cardiac cath showed acute atherothrombotic occlusion of the proximal LAD in the setting of an anterior ST elevation myocardial infarction. Successful IVUS guided PCI of the proximal LAD with placement of drug-eluting stent with excellent final angiographic and ultrasonographic results, ROSEMARIE-3 flow, 0% residual stenosis. Left ventriculography revealed severe anterior and anteroseptal dyskinesis. Ejection fraction of 30-35%. Patent stents in the right coronary with 90% patency Successful intra-aortic balloon pump placement (2) Hypertension Current Visit: Yes Status: Chronic Qualifiers: Hypertension type: essential hypertension Qualified Code(s): I10 - Essenti al (primary) hypertension Plan to address problem: Continue antihypertensives and keep blood pressure under control (3) Coronary artery disease Current Visit: Yes Status: Chronic Qualifiers: Coronary Disease-Associated Artery/Lesion type: unspecified vessel or lesion type Plan to address problem: Patient on Effient [facility] follow-up (4) Hyperlipidemia Current Visit: Yes Status: Chronic Qualifiers: Hyperlipidemia type: mixed hyperlipidemia Qualified Code(s): E78.2 - Mixed hyperlipidemia Plan to address problem: Statins to continue (5) DVT prophylaxis Current Visit: Yes Status: Acute Plan to address problem: Patient on IV heparin and GI prophylaxis Subjective Date of service: 07/30/18 Principal diagnosis: STEMI-anterior Interval history: Symptomatically better Intra-aortic balloon pump removed Objective - Constitutional Vitals: Vital Signs - 12hr 07/30/18 07/30/18 07/30/18 02:16 02:30 02:46 Temperature Pulse Rate 65 66 64 Respiratory 21 18 20 Rate Blood Pressure 123/73 113/75 122/72 O2 Sat by Pulse 95 98 99 Oximetry 07/30/18 07/30/18 07/30/18 03:00 03:16 03:30 Temperature Pulse Rate 61 63 72 Respiratory 17 16 15 Rate Blood Pressure 123/73 119/74 119/74 O2 Sat by Pulse 97 96 96 Oximetry 07/30/18 07/30/18 07/30/18 03:45 04:00 04:16 Temperature 97.8 F Pulse Rate 63 66 63 Respiratory 22 22 20 Rate Blood Pressure 112/66 112/66 118/78 O2 Sat by Pulse 95 97 98 Oximetry 07/30/18 07/30/18 07/30/18 04:30 04:46 05:00 Temperature Pulse Rate 72 68 65 Respiratory 12 22 23 Rate Blood Pressure 118/78 115/86 125/82 O2 Sat by Pulse 93 98 98 Oximetry 07/30/18 07/30/18 07/30/18 05:16 05:30 05:46 Temperature Pulse Rate 68 66 70 Respiratory 21 22 19 Rate Blood Pressure 114/65 119/72 119/72 O2 Sat by Pulse 97 98 96 Oximetry 07/30/18 07/30/18 07/30/18 06:00 06:16 06:30 Temperature 97.8 F Pulse Rate 65 64 66 Respiratory 21 20 15 Rate Blood Pressure 124/79 122/78 123/80 O2 Sat by Pulse 96 95 97 Oximetry 07/30/18 07/30/18 07/30/18 06:46 07:00 07:15 Temperature Pulse Rate 66 70 67 Respiratory 14 14 21 Rate Blood Pressure 124/84 129/81 129/71 O2 Sat by Pulse 96 97 97 Oximetry 07/30/18 07/30/18 07/30/18 07:30 07:46 08:00 Temperature 98.9 F Pulse Rate 70 65 74 Respiratory 12 11 L 9 L Rate Blood Pressure 129/71 129/69 129/71 O2 Sat by Pulse 86 96 95 Oximetry 07/30/18 07/30/18 07/30/18 08:16 08:30 08:45 Temperature Pulse Rate 67 66 66 Respiratory 10 L 24 20 Rate Blood Pressure 116/76 123/78 105/68 O2 Sat by Pulse 99 98 96 Oximetry 07/30/18 07/30/18 07/30/18 09:00 09:07 09:16 Temperature 98.9 F Pulse Rate 67 66 73 Respiratory 24 19 20 Rate Blood Pressure 105/70 105/70 93/69 O2 Sat by Pulse 94 93 Oximetry 07/30/18 07/30/18 07/30/18 09:30 09:46 10:00 Temperature 98.9 F Pulse Rate 66 67 70 Respiratory 18 18 20 Rate Blood Pressure 93/69 111/78 115/82 O2 Sat by Pulse 98 96 97 Oximetry 07/30/18 07/30/18 07/30/18 10:12 10:16 10:30 Temperature Pulse Rate 64 67 Respiratory 12 15 Rate Blood Pressure 118/72 119/72 O2 Sat by Pulse 98 93 96 Oximetry 07/30/18 07/30/18 07/30/18 10:46 11:00 11:16 Temperature 98.9 F Pulse Rate 68 72 66 Respiratory 10 L 15 13 Rate Blood Pressure 127/78 118/72 126/87 O2 Sat by Pulse 99 97 97 Oximetry 07/30/18 07/30/18 07/30/18 11:30 11:45 12:00 Temperature 98.7 F Pulse Rate 68 61 63 Respiratory 11 L 20 21 Rate Blood Pressure 129/89 119/79 119/79 O2 Sat by Pulse 99 96 99 Oximetry 07/30/18 07/30/18 07/30/18 12:15 12:30 12:46 Temperature Pulse Rate 71 62 66 Respiratory 25 H 11 L 15 Rate Blood Pressure 129/95 136/91 146/105 O2 Sat by Pulse 96 98 95 Oximetry 07/30/18 07/30/18 13:00 13:15 Temperature Pulse Rate 70 74 Respiratory 19 18 Rate Blood Pressure 130/91 148/102 O2 Sat by Pulse 98 Oximetry General appearance: Present: no acute distress, well-nourished - EENT Eyes: PERRL, EOM intact ENT: hearing intact, clear oral mucosa Ears: bilateral: normal - Neck Neck: supple, normal ROM - Respiratory Respiratory effort: normal Respiratory: bilateral: CTA - Breasts Breasts: normal - Cardiovascular Heart rate: 70 Rhythm: regular Heart Sounds: Present: S1 & S2. Absent: gallop, rub Extremities: no ischemia, pulses intact, No edema, normal color, Full ROM - Gastrointestinal General gastrointestinal: Present: soft, non-tender, non-distended, normal bowel sounds - Genitourinary Male genitourinary: normal - Integumentary Integumentary: clear, warm, dry - Musculoskeletal Musculoskeletal: 1, strength equal bilaterally - Neurologic Neurologic: moves all extremities - Psychiatric Psychiatric: memory intact, appropriate mood/affect, intact judgment & insight - Labs CBC & Chem 7: 07/30/18 02:55 07/30/18 02:55 Labs: Abnormal lab results 07/29/18 07/29/18 07/29/18 Range/Units 09:23 15:29 15:29 [place] % (Auto) (0.0-7.3) % Lymph # (1.2-5.4) K/mm3 Lymphocytes % (Manual) 40.0 H (13.4-35.0) % Monocytes % (Manual) 10.0 H (0.0-7.3) % Heparin Anti-Xa Level (0.3-0.7) U.I./ml Glucose (75-100) mg/dL Hemoglobin A1c 6.6 H (4-6) % Total Creatine Kinase (55-170) units/L CK-MB (CK-2) (0.0-4.0) ng/mL CK-MB (CK-2) Rel Index (0-4) Troponin T 2.700 H* D (0.00-0.029) ng/mL HDL Cholesterol 60 H (40-59) mg/dL 07/29/18 07/29/18 07/30/18 Range/Units 17:24 17:24 02:55 [place] % (Auto) 12.7 H (0.0-7.3) % Lymph # 1.1 L (1.2-5.4) K/mm3 Lymphocytes % (Manual) (13.4-35.0) % Monocytes % (Manual) (0.0-7.3) % Heparin Anti-Xa Level 1.02 H (0.3-0.7) U.I./ml Glucose (75-100) mg/dL Hemoglobin A1c (4-6) % Total Creatine Kinase (55-170) units/L CK-MB (CK-2) (0.0-4.0) ng/mL CK-MB (CK-2) Rel Index (0-4) Troponin T 4.010 H* D (0.00-0.029) ng/mL HDL Cholesterol (40-59) mg/dL 07/30/18 07/30/18 07/30/18 Range/Units 02:55 02:55 11:31 [place] % (Auto) (0.0-7.3) % Lymph # (1.2-5.4) K/mm3 Lymphocytes % (Manual) (13.4-35.0) % Monocytes % (Manual) (0.0-7.3) % Heparin Anti-Xa Level 0.28 L < 0.10 L (0.3-0.7) U.I./ml Glucose 101 H (75-100) mg/dL Hemoglobin A1c (4-6) % Total Creatine Kinase 757 H (55-170) units/L CK-MB (CK-2) 47.8 H (0.0-4.0) ng/mL CK-MB (CK-2) Rel Index 6.3 H (0-4) Troponin T 2.890 H* D (0.00-0.029) ng/mL HDL Cholesterol (40-59) mg/dL
[2018-07-30] MEDS: EFFIENT PO SCH (15:29)
[2018-07-30] MEDS: NACL 0.9% 1000 ML 1,000 ML IV SCH (23:30)
[2018-07-31 04:41] LABS: Basophils % (Auto) 0.3 % (0.0-1.8); Eosinophils # (Auto) 0.1 K/mm3 (0.0-0.4); Eosinophils % (Auto) 1.1 % (0.0-4.3); Hematocrit 40.2 % (35.5-45.6); Hemoglobin 13.6 gm/dl (11.8-15.2); Lymphocytes # (Auto) 1.1 K/mm3 (1.2-5.4); Lymphocytes % (Auto) 22.2 % (13.4-35.0); Mean Corpuscular HGB Conc 34 % (32-34); Mean Corpuscular Volume 94 fl (84-94); Monocytes # (Auto) 0.7 K/mm3 (0.0-0.8); Monocytes % (Auto) 14.6 % (0.0-7.3); Platelet Count 218 K/mm3 (140-440); Red Blood Count 4.26 M/mm3 (3.65-5.03)
[2018-07-31 04:57] LABS: BUN/Creatinine Ratio 11; Blood Urea Nitrogen 8 mg/dL (9-20); Calcium 8.7 mg/dL (8.4-10.2); Hemolysis Index 29
[2018-07-31] MEDS: PEPCID IV SCH (09:40)
[2018-07-31] MEDS: BABY ASPIRIN PO SCH (09:40)
[2018-07-31] MEDS: MORPHINE IV PRN (09:40)
[2018-07-31] MEDS: SODIUM CHLORIDE FLUSH SYRINGE 10 ML IV SCH ×2 (10:00→21:14)
[2018-07-31] MEDS: EFFIENT PO SCH (12:04)
--- NOTE | 2018-07-31 17:57 | Progress Note ---
Assessment and Plan - Patient Problems (1) ST elevation [place] (STEMI) Current Visit: Yes Status: Acute Qualifiers: Involved coronary artery: unspecified coronary artery Qualified Code(s): I21.3 - ST elevation (STEMI) myocardial infarction of unspecified site Plan to address problem: Had PCI and Stents Cardiac cath showed acute atherothrombotic occlusion of the proximal LAD in the setting of an anterior ST elevation myocardial infarction. Successful IVUS guided PCI of the proximal LAD with placement of drug-eluting stent with excellent final angiographic and ultrasonographic results, ROSEMARIE-3 flow, 0% residual stenosis. Left ventriculography revealed severe anterior and anteroseptal dyskinesis. Ejection fraction of 30-35%. Patent stents in the right coronary with 90% patency Successful intra-aortic balloon pump placement D/c home if cleared by cardiolgy (2) Hypertension Current Visit: Yes Status: Chronic Qualifiers: Hypertension type: essential hypertension Qualified Code(s): I10 - Essential (primary) hypertension Plan to address problem: Continue antihypertensives and keep blood pressure under control (3) Coronary artery disease Current Visit: Yes Status: Chronic Qualifiers: Coronary Disease-Associated Artery/Lesion type: unspecified vessel or lesion type Plan to address problem: Patient on Effient [facility] follow-up (4) Hyperlipidemia Current Visit: Yes Status: Chronic Qualifiers: Hyperlipidemia type: mixed hyperlipidemia Qualified Code(s): E78.2 - Mixed hyperlipidemia Plan to address problem: Statins to continue (5) DVT prophylaxis Current Visit: Yes Status: Acute Plan to address problem: Patient on IV heparin and GI prophylaxis Subjective Date of service: 07/31/18 Principal diagnosis: STEMI-anterior Interval history: Symptomatically better Intra-aortic balloon pump removed Objective - Constitutional Vitals: Vital Signs - 12hr 07/31/18 07/31/18 07/31/18 06:00 06:30 07:00 Temperature Pulse Rate 75 77 80 Pulse Rate [ Apical] Pulse Rate [ From Monitor] Respiratory 19 25 H 17 Rate Respiratory Rate [Right Hip ] Blood Pressure 123/82 115/75 125/67 O2 Sat by Pulse 97 95 97 Oximetry 07/31/18 07/31/18 07/31/18 07:30 07:50 08:00 Temperature 98.6 F Pulse Rate 71 75 74 Pulse Rate [ 74 Apical] Pulse Rate [ 74 From Monitor] Respiratory 12 19 Rate Respiratory Rate [Right Hip ] Blood Pressure 130/87 130/87 O2 Sat by Pulse 99 100 Oximetry 07/31/18 07/31/18 07/31/18 08:30 09:00 09:08 Temperature Pulse Rate 77 80 Pulse Rate [ Apical] Pulse Rate [ From Monitor] Respiratory 16 15 Rate Respiratory Rate [Right Hip ] Blood Pressure 131/75 131/75 O2 Sat by Pulse 99 Oximetry 07/31/18 07/31/18 07/31/18 09:30 10:00 10:30 Temperature Pulse Rate 70 69 77 Pulse Rate [ Apical] Pulse Rate [ From Monitor] Respiratory 35 H 20 20 Rate Respiratory 20 Rate [Right Hip ] Blood Pressure 131/75 115/67 115/72 O2 Sat by Pulse 97 96 Oximetry 07/31/18 07/31/18 07/31/18 11:00 11:30 12:00 Temperature Pulse Rate 70 68 72 Pulse Rate [ 72 Apical] Pulse Rate [ 72 From Monitor] Respiratory 16 15 10 L Rate Respiratory Rate [Right Hip ] Blood Pressure 138/86 128/86 131/95 O2 Sat by Pulse 95 96 100 Oximetry 07/31/18 07/31/18 13:33 16:00 Temperature 98.3 F Pulse Rate 72 Pulse Rate [ Apical] Pulse Rate [ From Monitor] Respiratory 20 18 Rate Respiratory Rate [Right Hip ] Blood Pressure 105/73 O2 Sat by Pulse 98 Oximetry General appearance: Present: no acute distress, well-nourished - EENT Eyes: PERRL, EOM intact ENT: hearing intact, clear oral mucosa Ears: bilateral: normal - Neck Neck: supple, normal ROM - Respiratory Respiratory effort: normal Respiratory: bilateral: CTA - Breasts Breasts: normal - Cardiovascular Heart rate: 72 Rhythm: regular Heart Sounds: Present: S1 & S2. Absent: gallop, rub Extremities: no ischemia, pulses intact, No edema, normal color, Full ROM - Gastrointestinal General gastrointestinal: Present: soft, non-tender, non-distended, normal bowel sounds Rectal Exam: deferred - Genitourinary Male genitourinary: normal - Integumentary Integumentary: clear, warm, dry - Musculoskeletal Musculoskeletal: 1, strength equal bilaterally - Neurologic Neurologic: moves all extremities - Psychiatric Psychiatric: memory intact, appropriate mood/affect, intact judgment & insight - Labs CBC & Chem 7: 07/31/18 04:21 07/31/18 04:21 Labs: Abnormal lab results 07/29/18 07/29/18 07/29/18 Range/Units 10:30 10:50 11:24 [place] % (Auto) (0.0-7.3) % Lymph # (1.2-5.4) K/mm3 Activated Clotting Time 186 H 191 H 219 H (74-137) BUN (9-20) mg/dL Creatinine (0.8-1.5) mg/dL Glucose (75-100) mg/dL 07/31/18 07/31/18 Range/Units 04:21 04:21 [place] % (Auto) 14.6 H (0.0-7.3) % Lymph # 1.1 L (1.2-5.4) K/mm3 Activated Clotting Time (74-137) BUN 8 L (9-20) mg/dL Creatinine 0.7 L (0.8-1.5) mg/dL Glucose 101 H (75-100) mg/dL
--- NOTE | 2018-07-31 18:52 | Progress Note ---
Assessment and Plan - Patient Problems (1) ST elevation [place] (STEMI) Current Visit: Yes Status: Acute Qualifiers: Involved coronary artery: unspecified coronary artery Qualified Code(s): I21.3 - ST elevation (STEMI) myocardial infarction of unspecified site Plan to address problem: Medical therapy withdrawal oral antiplatelet therapy, oral nitrates, beta blockers, afterload agent and high-dose statin. Anticipated discharge home in 24-48 hours. Subjective Date of service: 07/31/18 Principal diagnosis: STEMI-anterior Interval history: The patient is a 58-year-old man with coronary artery disease, 3 months ago he underwent primary angioplasty and stenting of the right coronary artery for an acute inferior wall ST elevation myocardial infarction. At that time, he was noted with moderate severity nonobstructive disease of the LAD. He presents to the hospital at this time with an acute anterior wall myocardial infarction due to acute occlusion of the mid LAD at the origin of the large diagonal branch. He underwent successful primary angioplasty of the LAD with stent deployment across the diagonal branch. There was ROSEMARIE-3 flow down the LAD, and ROSEMARIE 2-3 flow with mild ostial stent jailing of the diagonal branch. Today, the patient looks and feels better, he is currently on aspirin 81 mg and Prasugrel 10 mg. Echocardiogram shows left ventricular systolic ejection fraction 40-45%, largely unchanged from 3 months ago. Objective Vital Signs Temp Pulse Pulse Pulse Pulse Pulse Pulse 07/31/18 16:00 07/31/18 13:33 98.3 F 72 07/31/18 12:00 72 72 72 07/31/18 11:30 68 07/31/18 11:00 70 07/31/18 10:30 77 07/31/18 10:00 69 07/31/18 09:30 70 07/31/18 09:08 07/31/18 09:00 80 07/31/18 08:30 77 07/31/18 08:00 98.6 F 74 74 74 07/31/18 07:50 75 07/31/18 07:30 71 07/31/18 07:00 80 07/31/18 06:30 77 07/31/18 06:00 75 07/31/18 05:30 68 07/31/18 05:00 64 07/31/18 04:30 65 07/31/18 04:00 68 07/31/18 03:30 63 07/31/18 03:15 98.4 F 07/31/18 03:00 67 07/31/18 02:30 66 07/31/18 02:00 73 07/31/18 01:30 71 07/31/18 01:00 68 07/31/18 00:30 67 07/31/18 00:00 98.9 F 67 07/30/18 23:45 07/30/18 23:32 71 07/30/18 23:30 75 07/30/18 23:21 70 07/30/18 23:00 80 07/30/18 22:30 79 07/30/18 22:00 73 07/30/18 21:30 76 07/30/18 21:00 79 07/30/18 20:30 80 07/30/18 20:00 99.2 F 82 07/30/18 19:31 76 77 79 07/30/18 19:30 70 07/30/18 19:00 72 Resp Resp BP BP BP BP Pulse Ox 07/31/18 16:00 18 07/31/18 13:33 20 105/73 98 07/31/18 12:00 10 L 131/95 100 07/31/18 11:30 15 128/86 96 07/31/18 11:00 16 138/86 95 07/31/18 10:30 20 115/72 96 07/31/18 10:00 20 20 115/67 97 07/31/18 09:30 35 H 131/75 07/31/18 09:08 99 07/31/18 09:00 15 131/75 07/31/18 08:30 16 131/75 07/31/18 08:00 19 130/87 100 07/31/18 07:50 07/31/18 07:30 12 130/87 99 07/31/18 07:00 17 125/67 97 07/31/18 06:30 25 H 115/75 95 07/31/18 06:00 19 123/82 97 07/31/18 05:30 18 123/82 98 07/31/18 05:00 16 130/74 99 07/31/18 04:30 22 117/73 98 07/31/18 04:00 20 116/81 97 07/31/18 03:30 23 114/68 96 07/31/18 03:15 04/08/19 03:00 18 106/66 99 07/31/18 02:30 22 105/62 97 07/31/18 02:00 17 113/71 98 07/31/18 01:30 17 96/52 07/31/18 01:00 20 107/56 98 07/31/18 00:30 21 107/56 94 07/31/18 00:00 19 99/51 96 07/30/18 23:45 97 07/30/18 23:32 16 108/57 97 07/30/18 23:30 25 H 108/57 97 07/30/18 23:21 23 121/66 97 07/30/18 23:00 18 126/67 100 07/30/18 22:30 18 139/79 100 07/30/18 22:00 21 136/82 99 07/30/18 21:30 17 122/89 07/30/18 21:00 18 134/92 97 07/30/18 20:30 19 140/90 98 07/30/18 20:00 11 L 132/100 100 07/30/18 19:31 150/85 149/82 146/90 07/30/18 19:30 14 152/92 88 07/30/18 19:00 27 H 141/87 98 - Physical Examination General: No Apparent Distress HEENT: Positive: Other (Left eye patch) Neck: Positive: neck supple Cardiac: Positive: Reg Rate and Rhythm Lungs: Positive: Decreased Breath Sounds Neuro: Positive: Grossly Intact Abdomen: Positive: Soft /Rectal: Normal Prostate, No Masses Skin: Musculoskeletal: No Fluid Collection, No Pain, Normal Range of Motion Gait: Normal Gait Extremities: - Labs and Meds CBC 07/31/18 Range/Units 04:21 WBC 4.9 (4.5-11.0) K/mm3 RBC 4.26 (3.65-5.03) M/mm3 Hgb 13.6 (11.8-15.2) gm/dl Hct 40.2 (35.5-45.6) % Plt Count 218 (140-440) K/mm3 Lymph # 1.1 L (1.2-5.4) K/mm3 [place] # 0.7 (0.0-0.8) K/mm3 Eos # 0.1 (0.0-0.4) K/mm3 Baso # 0.0 (0.0-0.1) K/mm3 Comprehensive Metabolic Panel 07/31/18 Range/Units 04:21 Sodium 140 (137-145) mmol/L Potassium 4.1 (3.6-5.0) mmol/L Chloride 104.5 (98-107) mmol/L Carbon Dioxide 24 (22-30) mmol/L BUN 8 L (9-20) mg/dL Creatinine 0.7 L (0.8-1.5) mg/dL Glucose 101 H (75-100) mg/dL Calcium 8.7 (8.4-10.2) mg/dL - Imaging and Cardiology EKG: report reviewed (STEMI Anterior)
[2018-07-31] MEDS: ZESTRIL PO SCH (21:10)
[2018-07-31] MEDS: PEPCID PO SCH (21:10)
[2018-07-31] MEDS: IMDUR PO SCH (21:10)
[2018-07-31] MEDS: LOPRESSOR PO SCH (21:10)
[2018-07-31] MEDS: BRILINTA PO SCH (21:10)
[2018-08-01] MEDS: BRILINTA PO SCH ×2 (10:47→21:31)
[2018-08-01] MEDS: PEPCID PO SCH ×2 (10:47→21:32)
[2018-08-01] MEDS: IMDUR PO SCH (10:47)
[2018-08-01] MEDS: LOPRESSOR PO SCH ×2 (10:47→21:32)
[2018-08-01] MEDS: SODIUM CHLORIDE FLUSH SYRINGE 10 ML IV SCH ×2 (10:47→21:34)
[2018-08-01] MEDS: BABY ASPIRIN PO SCH (10:47)
[2018-08-01] MEDS: ZESTRIL PO SCH (10:48)
--- NOTE | 2018-08-01 10:58 | Progress Note ---
Assessment and Plan Acute anterior wall myocardial infarction s/p PCI of the proximal LAD using a drug eluting stent on Brilinta and aspirin Hx of coronary artery disease s/p PCI of the RCA 3 months ago Echocardiogram shows left ventricular systolic ejection fraction 40-45%. Continue medical therapy for coronary artery disease including DAPT without i nterruption. Discharge planning in the next 24hrs. Subjective Date of service: 08/01/18 Principal diagnosis: STEMI-anterior Interval history: Patient denies chest pain and shortness of breath. Objective Vital Signs Temp Pulse Pulse Pulse Resp BP BP 08/01/18 07:44 98.4 F 18 117/66 08/01/18 07:00 66 08/01/18 04:31 64 08/01/18 00:01 98.4 F 08/01/18 00:00 83 07/31/18 23:59 78 17 111/56 07/31/18 21:10 98.3 F 67 17 127/86 07/31/18 21:03 69 07/31/18 21:02 98.3 F 65 17 127/86 07/31/18 20:58 82 07/31/18 16:35 98.0 F 68 20 118/72 07/31/18 16:00 18 07/31/18 13:33 98.3 F 72 20 105/73 07/31/18 12:00 72 72 72 10 L 131/95 07/31/18 11:30 68 15 128/86 07/31/18 11:00 70 16 138/86 Pulse Ox 08/01/18 07:44 08/01/18 07:00 08/01/18 04:31 99 08/01/18 00:01 08/01/18 00:00 96 07/31/18 23:59 98 07/31/18 21:10 100 07/31/18 21:03 99 07/31/18 21:02 99 07/31/18 20:58 07/31/18 16:35 98 07/31/18 16:00 07/31/18 13:33 98 07/31/18 12:00 100 07/31/18 11:30 96 07/31/18 11:00 95 - Physical Examination General: No Apparent Distress HEENT: Positive: Other (Left eye patch) Neck: Positive: trachea midline Cardiac: Positive: Reg Rate and Rhythm Lungs: Positive: Decreased Breath Sounds Neuro: Positive: Grossly Intact Abdomen: Positive: Soft Skin: Gait: Normal Gait Extremities: Absent: edema
--- NOTE | 2018-08-01 17:44 | Progress Note ---
Assessment and Plan Assessment and plan: Coffee-ground emesis. GI consultation. Continue Protonix drip. GI bleed/coffee-ground emesis. Etiology likely secondary to esophageal CA and recent anticoagulation. Continue Protonix twice a day. Consulted vascular surgery for IVC filter placement today. Chest pain, recurrent. ECG on presentation was a ventricular pacemaker rhythm, but on telemetry since hospitalization it appears he has had recurrent, nonsustained monomorphic ventricular tachycardia. NSVT. As above. Continue metoprolol and amiodarone Esophageal CA (dx 03/2018, currently on chemo) last was 2 weeks ago. Oncology following Pulmonary embolism. Anticoagulation held due to GI bleed. Patient with known recent diagnosis of PE ([facility] 2 weeks ago--per pt). CTA completed on this hospitalization, however, reveals pulmonary emboli and the distal basilar branches bilaterally with multifocal bilateral basilar infiltrates versus early lung infarctions. Dilated Nonischemic cardiomyopathy. Patient has an indwelling cardiac defibrillator. 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 History of atrial flutter. He has a history of atrial flutter status post SHOBHA guided cardioversion 05/2017. COPD, compensated. Bronchodilators/nebulizers Acute hypoxemic respiratory failure. Check ABG. Chest x-ray no infiltrates or effusions. Etiology likely secondary to PE and COPD. Consult pulmonary for further evaluation. GERD. PPI History of Gout (stable) Anemia of chronic disease. Follow up H&H. Transfuse for hemoglobin less than 7. Hematology following Hypokalemia. Replete potassium as needed. DM type2. Accu-Cheks and sliding scale insulin. KARIN on CPAP. Disposition; will be discharged tomorrow per cardiology. History Interval history: Patient was seen and evaluated this morning, patient didn't have any complaints. Hospitalist Physical - Physical exam Narrative exam: Not in cardiopulmonary distress. The patient is obese. Vital signs as documented. Head exam is unremarkable. No scleral icterus . Neck is without jugular venous distension, thyromegaly, or carotid bruits. Lungs are clear to auscultation. Cardiac exam reveals regular rate and Rhythm. First and second heart sounds normal. No murmurs, rubs or gallops. Abdominal exam reveals normal bowel sounds, no masses, no organomegaly and no aortic enlargement. Extremities are nonedematous and both femoral and pedal pulses are normal. 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 No focal weakness. - Constitutional Vitals: Temp Pulse Resp BP Pulse Ox 98.4 F 63 20 113/68 99 08/01/18 12:45 08/01/18 12:45 08/01/18 12:45 08/01/18 12:45 08/01/18 12:45 General appearance: Present: no acute distress, well-nourished Results - Labs CBC & Chem 7: 07/31/18 04:21 07/31/18 04:21 Labs: Laboratory Last Values WBC 4.9 K/mm3 (4.5-11.0) 07/31/18 04:21 RBC 4.26 M/mm3 (3.65-5.03) 07/31/18 04:21 Hgb 13.6 gm/dl (11.8-15.2) 07/31/18 04:21 Hct 40.2 % (35.5-45.6) 07/31/18 04:21 MCV 94 fl (84-94) 07/31/18 04:21 MCH 32 pg (28-32) 07/31/18 04:21 MCHC 34 % (32-34) 07/31/18 04:21 RDW 14.0 % (13.2-15.2) 07/31/18 04:21 Plt Count 218 K/mm3 (140-440) 07/31/18 04:21 Lymph % (Auto) 22.2 % (13.4-35.0) 07/31/18 04:21 Perry % (Auto) 14.6 % (0.0-7.3) H 07/31/18 04:21 Eos % (Auto) 1.1 % (0.0-4.3) 07/31/18 04:21 Baso % (Auto) 0.3 % (0.0-1.8) 07/31/18 04:21 Lymph # 1.1 K/mm3 (1.2-5.4) L 07/31/18 04:21 Perry # 0.7 K/mm3 (0.0-0.8) 07/31/18 04:21 Eos # 0.1 K/mm3 (0.0-0.4) 07/31/18 04:21 Baso # 0.0 K/mm3 (0.0-0.1) 07/31/18 04:21 Add Manual Diff Complete 07/29/18 09:23 Total Counted 100 07/29/18 09:23 Seg Neutrophils % 61.8 % (40.0-70.0) 07/31/18 04:21 Seg Neuts % (Manual) 49.0 % (40.0-70.0) 07/29/18 09:23 Band Neutrophils % 0 % 07/29/18 09:23 Lymphocytes % (Manual) 40.0 % (13.4-35.0) H 07/29/18 09:23 Reactive Lymphs % (Man) 0 % 07/29/18 09:23 Monocytes % (Manual) 10.0 % (0.0-7.3) H 07/29/18 09:23 Eosinophils % (Manual) 1.0 % (0.0-4.3) 07/29/18 09:23 Basophils % (Manual) 0 % (0.0-1.8) 07/29/18 09:23 Metamyelocytes % 0 % 07/29/18 09:23 Myelocytes % 0 % 07/29/18 09:23 Promyelocytes % 0 % 07/29/18 09:23 Blast Cells % 0 % 07/29/18 09:23 Nucleated RBC % Not Reportable 07/29/18 09:23 Seg Neutrophils # 3.0 K/mm3 (1.8-7.7) 07/31/18 04:21 Seg Neutrophils # Man 2.5 K/mm3 (1.8-7.7) 07/29/18 09:23 Band Neutrophils # 0.0 K/mm3 07/29/18 09:23 Lymphocytes # (Manual) 2.0 K/mm3 (1.2-5.4) 07/29/18 09:23 Abs React Lymphs (Man) 0.0 K/mm3 07/29/18 09:23 Monocytes # (Manual) 0.5 K/mm3 (0.0-0.8) 07/29/18 09:23 Eosinophils # (Manual) 0.1 K/mm3 (0.0-0.4) 07/29/18 09:23 Basophils # (Manual) 0.0 K/mm3 (0.0-0.1) 07/29/18 09:23 Metamyelocytes # 0.0 K/mm3 07/29/18 09:23 Myelocytes # 0.0 K/mm3 07/29/18 09:23 Promyelocytes # 0.0 K/mm3 07/29/18 09:23 Blast Cells # 0.0 K/mm3 07/29/18 09:23 WBC Morphology Not Reportable 07/29/18 09:23 Hypersegmented Neuts Not Reportable 07/29/18 09:23 Hyposegmented Neuts Not Reportable 07/29/18 09:23 Hypogranular Neuts Not Reportable 07/29/18 09:23 Smudge Cells Not Reportable 07/29/18 09:23 Toxic Granulation Not Reportable 07/29/18 09:23 Toxic Vacuolation Not Reportable 07/29/18 09:23 Dohle Bodies Not Reportable 07/29/18 09:23 Pelger-Huet Anomaly Not Reportable 07/29/18 09:23 Cherelle Rods Not Reportable 07/29/18 09:23 Platelet Estimate Consistent w auto 07/29/18 09:23 Clumped Platelets Not Reportable 07/29/18 09:23 Plt Clumps, EDTA Not Reportable 07/29/18 09:23 Large Platelets Not Reportable 07/29/18 09:23 Giant Platelets Not Reportable 07/29/18 09:23 Platelet Satelliting Not Reportable 07/29/18 09:23 Plt Morphology Comment Not Reportable 07/29/18 09:23 RBC Morphology Normal 07/29/18 09:23 Dimorphic RBCs Not Reportable 07/29/18 09:23 Polychromasia Not Reportable 07/29/18 09:23 Hypochromasia Not Reportable 07/29/18 09:23 Poikilocytosis Not Reportable 07/29/18 09:23 Anisocytosis Not Reportable 07/29/18 09:23 Microcytosis Not Reportable 07/29/18 09:23 Macrocytosis Not Reportable 07/29/18 09:23 Spherocytes Not Reportable 07/29/18 09:23 Pappenheimer Bodies Not Reportable 07/29/18 09:23 Sickle Cells Not Reportable 07/29/18 09:23 Target Cells Not Reportable 07/29/18 09:23 Tear Drop Cells Not Reportable 07/29/18 09:23 Ovalocytes Not Reportable 07/29/18 09:23 Helmet Cells Not Reportable 07/29/18 09:23 [place] Bodies Not Reportable 07/29/18 09:23 [place] Rings Not Reportable 07/29/18 09:23 Tierney Cells Not Reportable 07/29/18 09:23 Bite Cells Not Reportable 07/29/18 09:23 Crenated Cell Not Reportable 07/29/18 09:23 Elliptocytes Not Reportable 07/29/18 09:23 Acanthocytes (Spur) Not Reportable 07/29/18 09:23 Rouleaux Not Reportable 07/29/18 09:23 Hemoglobin C Crystals Not Reportable 07/29/18 09:23 Schistocytes Not Reportable 07/29/18 09:23 Malaria parasites Not Reportable 07/29/18 09:23 Mitch Bodies Not Reportable 07/29/18 09:23 Hem Pathologist Commnt No 07/29/18 09:23 PT 12.6 Sec. (12.2-14.9) 07/29/18 09:23 INR 0.89 (0.87-1.13) 07/29/18 09:23 APTT 24.9 Sec. (24.2-36.6) 07/29/18 09:23 Activated Clotting Time 219 (74-137) H 07/29/18 11:24 Heparin Anti-Xa Level < 0.10 U.I./ml (0.3-0.7) L 07/30/18 11:31 Sodium 140 mmol/L (137-145) 07/31/18 04:21 Potassium 4.1 mmol/L (3.6-5.0) 07/31/18 04:21 Chloride 104.5 mmol/L (98-107) 07/31/18 04:21 Carbon Dioxide 24 mmol/L (22-30) 07/31/18 04:21 Anion Gap 16 mmol/L 07/31/18 04:21 BUN 8 mg/dL (9-20) L 07/31/18 04:21 Creatinine 0.7 mg/dL (0.8-1.5) L 07/31/18 04:21 Estimated GFR > 60 ml/min 07/31/18 04:21 BUN/Creatinine Ratio 11 % 07/31/18 04:21 Glucose 101 mg/dL (75-100) H 07/31/18 04:21 Hemoglobin A1c 6.6 % (4-6) H 07/29/18 15:29 Calcium 8.7 mg/dL (8.4-10.2) 07/31/18 04:21 Total Bilirubin 0.50 mg/dL (0.1-1.2) 07/29/18 09:23 Direct Bilirubin < 0.2 mg/dL (0-0.2) 07/29/18 09:23 AST 18 units/L (5-40) 07/29/18 09:23 ALT 23 units/L (7-56) 07/29/18 09:23 Alkaline Phosphatase 66 units/L (35-129) 07/29/18 09:23 Total Creatine Kinase 757 units/L (55-170) H 07/30/18 02:55 CK-MB (CK-2) 47.8 ng/mL (0.0-4.0) H 07/30/18 02:55 CK-MB (CK-2) Rel Index 6.3 (0-4) H 07/30/18 02:55 Troponin T 2.890 ng/mL (0.00-0.029) H* D 07/30/18 02:55 Total Protein 7.2 g/dL (6.3-8.2) 07/29/18 09:23 Albumin 4.4 g/dL (3.9-5) 07/29/18 09:23 Albumin/Globulin Ratio 1.6 % 07/29/18 09:23 Triglycerides 36 mg/dL (2-149) 07/29/18 15:29 Cholesterol 130 mg/dL (50-199) 07/29/18 15:29 LDL Cholesterol Direct 74 mg/dL (50-130) 07/29/18 15:29 HDL Cholesterol 60 mg/dL (40-59) H 07/29/18 15:29 Cholesterol/HDL Ratio 2.16 % 07/29/18 15:29 Urine Color Yellow (Yellow) 07/30/18 01:30 Urine Turbidity Clear (Clear) 07/30/18 01:30 Urine pH 6.0 (5.0-7.0) 07/30/18 01:30 Ur Specific [place] 1.025 (1.003-1.030) 07/30/18 01:30 Urine Protein <15 mg/dl mg/dL (Negative) 07/30/18 01:30 Urine Glucose (UA) Neg mg/dL (Negative) 07/30/18 01:30 Urine Ketones 20 mg/dL (Negative) 07/30/18 01:30 Urine Blood Neg (Negative) 07/30/18 01:30 Urine Nitrite Neg (Negative) 07/30/18 01:30 Urine Bilirubin Neg (Negative) 07/30/18 01:30 Urine Urobilinogen < 2.0 mg/dL (<2.0) 07/30/18 01:30 Ur Leukocyte Esterase Neg (Negative) 07/30/18 01:30 Urine WBC (Auto) < 1.0 /HPF (0.0-6.0) 07/30/18 01:30 Urine RBC (Auto) 0.0 /HPF (0.0-6.0) 07/30/18 01:30 U Epithel Cells (Auto) < 1.0 /HPF (0-13.0) 07/30/18 01:30 Urine Mucus Few /HPF 07/30/18 01:30 Urine Opiates Screen Presumptive negative 07/30/18 01:30 Urine Methadone Screen Presumptive negative 07/30/18 01:30 Ur Barbiturates Screen Presumptive negative 07/30/18 01:30 Ur Phencyclidine Scrn Presumptive negative 07/30/18 01:30 Ur Amphetamines Screen Presumptive negative 07/30/18 01:30 U Benzodiazepines Scrn Presumptive negative 07/30/18 01:30 Urine Cocaine Screen Presumptive negative 07/30/18 01:30 U Marijuana (THC) Screen Presumptive negative 07/30/18 01:30 Drugs of Abuse Note Disclamer 07/30/18 01:30 Blood Type O POSITIVE 07/29/18 09:23 Antibody Screen Negative 07/29/18 09:23 Active Medications - Current Medications Current Medications: Generic Name Dose Route Start Last Admin Trade Name Freq PRN Reason Stop Dose Admin Acetaminophen 650 mg 07/29/18 13:44 07/31/18 13:45 Tylenol PO 650 mg Q4H PRN Administration Pain MILD(1-3)/Fever >100.5/CASTILLO Aspirin 81 mg 07/30/18 10:00 08/01/18 10:47 Baby Aspirin PO 81 mg QDAY OUMOU Administration Atorvastatin Calcium 40 mg 07/29/18 22:00 07/31/18 21:09 Lipitor PO 40 mg QHS OUMOU Administration Famotidine 20 mg 07/31/18 22:00 08/01/18 10:47 Pepcid PO 20 mg BID OUMOU Administration Hydromorphone HCl 0.5 mg 07/29/18 13:44 07/30/18 09:00 Dilaudid IV 0.5 mg Q3H PRN Administration Pain , Severe (7-10) Isosorbide Mononitrate 30 mg 07/31/18 19:00 08/01/18 10:47 Imdur PO 30 mg QDAY OUMOU Administration Lisinopril 2.5 mg 07/31/18 19:00 08/01/18 10:48 Zestril PO Not Given QDAY OUMOU Metoprolol Tartrate 25 mg 07/31/18 22:00 08/01/18 10:47 Lopressor PO 25 mg BID OUMOU Administration Morphine Sulfate 2 mg 07/29/18 13:49 07/31/18 09:40 Morphine IV 2 mg Q2H PRN Administration MOD. PAIN Ondansetron HCl 4 mg 07/29/18 13:44 Zofran IV Q8H PRN Nausea And Vomiting Sodium Chloride 10 ml 07/29/18 22:00 08/01/18 10:47 Sodium Chloride Flush Syringe 10 Ml IV 10 ml BID OUMOU Administration Sodium Chloride 10 ml 07/29/18 13:44 Sodium Chloride Flush Syringe 10 Ml IV PRN PRN LINE FLUSH Ticagrelor 90 mg 07/31/18 22:00 08/01/18 10:47 Brilinta PO 90 mg BID OUMOU Administration Zolpidem Tartrate 5 mg 07/29/18 13:44 Ambien PO QHS PRN Insomnia Nutrition/Malnutrition Assess - Dietary Evaluation Nutrition/Malnutrition Findings: Nutrition Notes Start: 07/31/18 16:00 Freq: Status: Active Protocol: Document 07/31/18 16:00 TRIPP (Rec: 07/31/18 16:04 TRIPP [email or web address]) Nutrition Notes Need for 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 He reports good appetite. Burn Absent Trauma Absent Is patient on ventilator? No Is Patient Ambulatory and/or Out of Bed Yes REE-([facility]-ambulatory/OOB) [ 2418.494 [id number]] Kcal/Kg value to use for calculation 18 Approximate Energy Requirements Using 1899 kcal/Kg Calculation Used for Recommendations Kcal/kg Additional Notes Pro needs 0.8-1g/kg adjBW: 71- 89g/day Fluid needs 1ml/kcal Nutrition Intervention Follow-Up By: 08/04/18 Additional Comments F/U: intakes
[2018-08-02 06:22] LABS: Hematocrit 36.3 % (35.5-45.6); Hemoglobin 12.2 gm/dl (11.8-15.2)
[2018-08-02 09:09] VITALS: BP 154/99
[2018-08-02] MEDS: BRILINTA PO SCH (09:20)
[2018-08-02] MEDS: IMDUR PO SCH (09:20)
[2018-08-02] MEDS: ZESTRIL PO SCH (09:21)
[2018-08-02] MEDS: PEPCID PO SCH (09:22)
[2018-08-02] MEDS: BABY ASPIRIN PO SCH (09:22)
[2018-08-02] MEDS: LOPRESSOR PO SCH (09:22)
[2018-08-02] MEDS: SODIUM CHLORIDE FLUSH SYRINGE 10 ML IV SCH (09:23)
--- NOTE | 2018-08-02 09:55 | Discharge Summary ---
Providers - Providers Date of Admission: 07/29/18 09:53 Attending physician: JOSIAH HERNANDEZ MD 07/29/18 Consult to Cardiac Rehabilitation [CONS] Routine Reason For Exam: post pci 07/29/18 11:09 Consult to Physician [CONS] Routine Comment: Consulting Provider: HERNANDO RIVERA Physician Instructions: Reason For Exam: stemi [facility] Reason for admission: STEMI Condition: Stable Pertinent studies: EKG shows anterior wall STEMI Echo showed ejection fraction of 40-45% Procedures: Stent placement Hospital course: Patient was admitted for STEMI Acute anterior wall myocardial infarction; s/p PCI of the proximal LAD using a drug eluting sten. on Brilinta and aspirin Hx of coronary artery disease; s/p PCI of the RCA 3 months ago Echocardiogram shows left ventricular systolic ejection fraction 40-45%. Continue medical therapy for coronary artery disease including DAPT without interruption. Patient was stable for discharge. Patient advised to f/u with [facility] within 3-5 days. Patient discharged home. Appropriate medication scripts were given at the time of discharge. Disposition: DC-01 TO HOME OR SELFCARE Time spent for discharge: 32 minutes - Discharge Diagnoses (1) ST elevation [place] (STEMI) Status: Acute Qualifiers: Involved coronary artery: unspecified coronary artery Qualified Code(s): I21.3 - ST elevation (STEMI) myocardial infarction of unspecified site (2) Coronary artery disease Status: Chronic Qualifiers: Coronary Disease-Associated Artery/Lesion type: unspecified vessel or lesion type (3) Hyperlipidemia Status: Chronic Qualifiers: Hyperlipidemia type: mixed hyperlipidemia Qualified Code(s): E78.2 - Mixed hyperlipidemia (4) Hypertension Status: Chronic Qualifiers: Hypertension type: essential hypertension Qualified Code(s): I10 - Essential (primary) hypertension (5) Abnormal EKG Status: Acute (6) Adverse effects of medication Status: Acute (7) History of [place] (myocardial infarction) Status: Acute (8) Hypertensive urgency Status: Acute (9) Inferior ST segment elevation Status: Acute Core Measure Documentation - Palliative Care Palliative Care/ Comfort Measures: Not Applicable - Core Measures Any of the following diagnoses?: none - Acute [place] Discharge Requirements Aspirin at discharge: Yes AURA/ARB for LVSD if EF <40%: Yes Beta naomi at discharge: Yes Statin for LDL = or >100 mg/dl on DC: Yes Exam - Physical Exam Narrative exam: Not in cardiopulmonary distress. The patient is obese. Vital signs as documented. Head exam is unremarkable. No scleral icterus . Neck is without jugular venous distension, thyromegaly, or carotid bruits. Lungs are clear to auscultation. Cardiac exam reveals regular rate and Rhythm. First and second heart sounds normal. No murmurs, rubs or gallops. Abdominal exam reveals normal bowel sounds, no masses, no organomegaly and no aortic enlargement. Extremities are nonedematous and both femoral and pedal pulses are normal. 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 No focal weakness. - Constitutional Vitals: Temp Pulse Resp BP Pulse Ox 98.4 F 72 20 154/99 96 08/02/18 09:06 08/02/18 09:22 08/02/18 09:06 08/02/18 09:22 08/02/18 09:06 Plan Activity: no restrictions Weight Bearing Status: Full Weight Bearing Diet: low cholesterol, low salt Follow up with: JUAQUIN GONZALEZ MD [Primary Care Provider] - 7 Days
--- NOTE | 2018-08-02 10:37 | Progress Note ---
Assessment and Plan Acute anterior wall myocardial infarction s/p PCI of the proximal LAD using a drug eluting stent on Brilinta and aspirin Hx of coronary artery disease s/p PCI of the RCA 3 months ago Echocardiogram shows left ventricular systolic ejection fraction 40-45%. Continue medical therapy for coronary artery disease including DAPT without i nterruption. Stable for discharge home today on medications. Patient advised to f/u with [facility] within 3-5 days. Subjective Date of service: 08/02/18 Principal diagnosis: STEMI-anterior Interval history: Patient denies chest pain and shortness of breath. For planned discharge home today. Objective Vital Signs Temp Pulse Resp Resp BP BP Pulse Ox 08/02/18 09:22 72 154/99 08/02/18 09:21 72 154/99 08/02/18 09:20 72 154/99 08/02/18 09:06 98.4 F 72 20 154/99 96 08/02/18 04:49 98.1 F 68 20 118/76 99 08/02/18 01:09 98.0 F 66 20 82/34 98 08/01/18 21:32 77 114/62 08/01/18 20:53 18 08/01/18 20:50 16 98 08/01/18 20:12 98.7 F 77 20 114/62 100 08/01/18 19:37 80 08/01/18 18:11 98.1 F 75 20 137/80 98 08/01/18 12:45 98.4 F 63 20 113/68 99 - Physical Examination General: No Apparent Distress HEENT: Positive: Other (Left eye patch) Neck: Positive: trachea midline Cardiac: Positive: Reg Rate and Rhythm Lungs: Positive: Decreased Breath Sounds Neuro: Positive: Grossly Intact Abdomen: Positive: Soft Skin: Extremities: Absent: edema - Labs and Meds Cardiac Enzymes 07/29/18 Range/Units 09:23 AST 18 (5-40) units/L CK-MB (CK-2) 4.9 H (0.0-4.0) ng/mL Coagulation 07/29/18 Range/Units 09:23 PT 12.6 (12.2-14.9) Sec. INR 0.89 (0.87-1.13) APTT 24.9 (24.2-36.6) Sec. CBC 07/29/18 08/02/18 Range/Units 09:23 05:42 WBC 5.0 (4.5-11.0) K/mm3 RBC 4.33 (3.65-5.03) M/mm3 Hgb 13.8 12.2 (11.8-15.2) gm/dl Hct 40.6 36.3 (35.5-45.6) % Plt Count 272 193 (140-440) K/mm3 Comprehensive Metabolic Panel 07/29/18 07/29/18 Range/Units 09:23 09:23 Sodium 140 140 (137-145) mmol/L Potassium 3.9 3.9 (3.6-5.0) mmol/L Chloride 102.8 102.8 (98-107) mmol/L Carbon Dioxide 27 27 (22-30) mmol/L BUN 12 12 (9-20) mg/dL Creatinine 0.8 0.8 (0.8-1.5) mg/dL Glucose 136 H 138 H (75-100) mg/dL Calcium 8.7 8.7 (8.4-10.2) mg/dL AST 18 (5-40) units/L ALT 23 (7-56) units/L Alkaline Phosphatase 66 (35-129) units/L Total Protein 7.2 (6.3-8.2) g/dL Albumin 4.4 (3.9-5) g/dL
== END 2018-08-02 13:11 | disposition home or self-care (01) | DRG 246 ==
LOC: ED 09:24 → IMCU 09:53 → CC1 16:41 → 4A 07-31 11:51
PROVIDERS: ADMIT Internal Medicine; ATTEND Internal Medicine
PROC: 027034Z Dilation of Coronary Artery, One Artery with Drug-eluting Intraluminal Device, Percutaneous Approach (ICD-10-PCS; principal; 2018-07-29)
PROC: B240ZZ3 Ultrasonography of Single Coronary Artery, Intravascular (ICD-10-PCS; 2018-07-29)
PROC: 4A023N7 Measurement of Cardiac Sampling and Pressure, Left Heart, Percutaneous Approach (ICD-10-PCS; 2018-07-29)
PROC: B2151ZZ Fluoroscopy of Left Heart using Low Osmolar Contrast (ICD-10-PCS; 2018-07-29)
PROC: B2111ZZ Fluoroscopy of Multiple Coronary Arteries using Low Osmolar Contrast (ICD-10-PCS; 2018-07-29)
DX: I21.09 ST elevation (STEMI) myocardial infarction involving other coronary artery of anterior wall (principal); J96.01 Acute respiratory failure with hypoxia; I26.99 Other pulmonary embolism without acute cor pulmonale; K92.2 Gastrointestinal hemorrhage, unspecified; I47.2 Ventricular tachycardia; C15.9 Malignant neoplasm of esophagus, unspecified; I42.0 Dilated cardiomyopathy; I25.10 Atherosclerotic heart disease of native coronary artery without angina pectoris; I10 Essential (primary) hypertension; I16.0 Hypertensive urgency; I21.19 ST elevation (STEMI) myocardial infarction involving other coronary artery of inferior wall; J44.9 Chronic obstructive pulmonary disease, unspecified; K21.9 Gastro-esophageal reflux disease without esophagitis; D63.8 Anemia in other chronic diseases classified elsewhere; E87.6 Hypokalemia; E11.9 Type 2 diabetes mellitus without complications; G47.33 Obstructive sleep apnea (adult) (pediatric); M10.9 Gout, unspecified; E78.2 Mixed hyperlipidemia; E78.00 Pure hypercholesterolemia, unspecified; I25.2 Old myocardial infarction; Z79.82 Long term (current) use of aspirin; Z79.899 Other long term (current) drug therapy; Z88.0 Allergy status to penicillin; Z95.810 Presence of automatic (implantable) cardiac defibrillator
CPT/HCPCS: 33967; 36415; 71045; 80048; 80053; 80061; 80076; 80307; 81001; 82550; 82553; 83036; 84484; 85007; 85014; 85018; 85025; 85049; 85347; 85520; 85610; 85730; 86850; 86900; 86901; 92941; 92978; 93005; 93010; 93306; 93458; G0378; A9270-GY; C1725; C1753; C1769; C1874; C1887; C1894; C9606; J1170; J1644; J2250; J2270; J2405; J3010; J3246; J7030; J7040; Q9967

== ENCOUNTER 2020-02-28 22:18 | Emergency (ER) | payer SELFPAY ==
--- NOTE | 2020-02-28 22:37 | Emergency Department Report ---
ED ENT HPI - General Chief complaint: Nosebleed Stated complaint: NOSE BLEED Time Seen by Provider: 02/28/20 22:26 Source: patient Mode of arrival: Ambulatory Limitations: No Limitations - History of Present Illness Initial comments: Patient is a 59-year-old male that presents emergency room with complaints of nosebleed. Patient states his right naris bleeding. Patient states it started 3 hours ago. Patient states it is constant and the bleeding is worsening. Patient states he is on blood thinners for heart conditions. Patient denies chest pain. Patient denies shortness of breath. Patient denies any trauma to the nose. Patient denies digital trauma. Patient denies cough. Patient denies fall. Patient denies recent travel. Patient denies recent international travel. Patient denies exposure to the novel coronavirus. Patient denies sick contacts. Patient denies fever and chills. Patient denies cough. Patient denies diarrhea. Patient denies coming in contact with anybody with symptoms of the novel coronavirus. MD complaint: epistaxis -: Sudden Location: nose Severity: severe Consistency: constant Improves with: pressure, rest Worsens with: position, movement Context-Epistaxis: aspirin use Associated Symptoms: denies: fever, cough, gum swelling, toothache, pain with swallowing, sore throat, tinnitus, hearing loss, discharge from ear, rhinorrhea - Related Data Home Medications Medication Instructions Recorded Confirmed Last Taken Brimonidine/Timolol 0.2-0.5% 1 drops OP TID 07/29/18 07/29/18 07/29/18 12:00 [Combigan 0.2-0.5%] Previous Rx's Medication Instructions Recorded Last Taken Type Aspirin [Aspirin BABY CHEW TAB] 81 mg PO QDAY #30 tab.chew 04/04/18 07/29/18 Rx AtorvaSTATin [Lipitor] 40 mg PO QHS #30 tablet 04/04/18 1 Week Ago Rx ~07/22/18 ISOSORBIDE MONOnitrate [Imdur ER] 30 mg PO DAILY #30 tab.er.24h 04/04/18 1 Week Ago Rx ~07/22/18 Lisinopril [Zestril TAB] 2.5 mg PO QDAY #30 tab 04/04/18 1 Week Ago Rx ~07/22/18 Metoprolol [Lopressor TAB] 25 mg PO BID #60 tablet 04/04/18 1 Day Ago Rx ~07/28/18 Ticagrelor [Brilinta] 90 mg PO BID #60 tablet 04/04/18 2 Days Ago Rx ~07/27/18 Allergies Allergy/AdvReac Type Severity Reaction Status Date / Time Penicillins Allergy Unknown Verified 04/02/18 02:46 seafoods Allergy Hives Uncoded 02/28/20 22:34 ED Dental HPI - General Chief complaint: Nosebleed Stated complaint: NOSE BLEED Time Seen by Provider: 02/28/20 22:32 Source: patient Mode of arrival: Ambulatory Limitations: No Limitations - History of Present Illness complaint: epistaxis - Related Data Home Medications Medication Instructions Recorded Confirmed Last Taken Brimonidine/Timolol 0.2-0.5% 1 drops OP TID 07/29/18 07/29/18 07/29/18 12:00 [Combigan 0.2-0.5%] Previous Rx's Medication Instructions Recorded Last Taken Type Aspirin [Aspirin BABY CHEW TAB] 81 mg PO QDAY #30 tab.chew 04/04/18 07/29/18 Rx AtorvaSTATin [Lipitor] 40 mg PO QHS #30 tablet 04/04/18 1 Week Ago Rx ~07/22/18 ISOSORBIDE MONOnitrate [Imdur ER] 30 mg PO DAILY #30 tab.er.24h 04/04/18 1 Week Ago Rx ~07/22/18 Lisinopril [Zestril TAB] 2.5 mg PO QDAY #30 tab 04/04/18 1 Week Ago Rx ~07/22/18 Metoprolol [Lopressor TAB] 25 mg PO BID #60 tablet 04/04/18 1 Day Ago Rx ~07/28/18 Ticagrelor [Brilinta] 90 mg PO BID #60 tablet 04/04/18 2 Days Ago Rx ~07/27/18 Allergies Allergy/AdvReac Type Severity Reaction Status Date / Time Penicillins Allergy Unknown Verified 04/02/18 02:46 seafoods Allergy Hives Uncoded 02/28/20 22:34 ED Review of Systems ROS: Stated complaint: NOSE BLEED Other details as noted in HPI Constitutional: denies: chills, fever Eyes: denies: eye pain, eye discharge, vision change ENT: as per HPI, epistaxis. denies: ear pain, throat pain Respiratory: denies: cough, shortness of breath, wheezing Cardiovascular: denies: chest pain, palpitations Endocrine: no symptoms reported Gastrointestinal: denies: abdominal pain, nausea, diarrhea Genitourinary: denies: urgency, dysuria Musculoskeletal: denies: back pain, joint swelling, arthralgia Skin: denies: rash, lesions Neurological: denies: headache, weakness, paresthesias Psychiatric: denies: anxiety, depression Hematological/Lymphatic: denies: easy bleeding, easy bruising ED Past Medical Hx - Past Medical History Previous Medical History?: Yes Hx Hypertension: Yes Hx Heart Attack/AMI: Yes (3 stents) Hx Diabetes: No 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) Hx Asthma: No Hx COPD: No Additional medical history: elevated cholesterol - Surgical History Past Surgical History?: Yes Hx Coronary Stent: Yes Additional Surgical History: left eye injury - Family History Family history: no significant - Social History Smoking Status: Never Smoker Substance Use Type: None - Medications Home Medications: Home Medications Medication Instructions Recorded Confirmed Last Taken Type Aspirin [Aspirin BABY CHEW TAB] 81 mg PO QDAY #30 tab.chew 04/04/18 07/29/18 07/29/18 Rx AtorvaSTATin [Lipitor] 40 mg PO QHS #30 tablet 04/04/18 07/29/18 1 Week Ago Rx ~07/22/18 ISOSORBIDE MONOnitrate [Imdur ER] 30 mg PO DAILY #30 tab.er.24h 04/04/18 07/29/18 1 Week Ago Rx ~07/22/18 Lisinopril [Zestril TAB] 2.5 mg PO QDAY #30 tab 04/04/18 07/29/18 1 Week Ago Rx ~07/22/18 Metoprolol [Lopressor TAB] 25 mg PO BID #60 tablet 04/04/18 07/29/18 1 Day Ago Rx ~07/28/18 Ticagrelor [Brilinta] 90 mg PO BID #60 tablet 04/04/18 07/29/18 2 Days Ago Rx ~07/27/18 Brimonidine/Timolol 0.2-0.5% 1 drops OP TID 07/29/18 07/29/18 07/29/18 12:00 History [Combigan 0.2-0.5%] ED Physical Exam - General Limitations: No Limitations General appearance: alert, in no apparent distress - Head Head exam: Present: atraumatic, normocephalic - Eye Eye exam: Present: normal appearance - ENT ENT exam: Present: mucous membranes moist, other (Continuous blood coming from the right nare.) - Neck Neck exam: Present: normal inspection - Respiratory Respiratory exam: Present: normal lung sounds bilaterally. Absent: respiratory distress, wheezes, rales - Cardiovascular Cardiovascular Exam: Present: regular rate, normal rhythm. Absent: systolic murmur, diastolic murmur, rubs, gallop - GI/Abdominal GI/Abdominal exam: Present: soft, normal bowel sounds - Rectal Rectal exam: Present: deferred - Extremities Exam Extremities exam: Present: normal inspection - Back Exam Back exam: Present: normal inspection - Neurological Exam Neurological exam: Present: alert, oriented X3 - Psychiatric Psychiatric exam: Present: normal affect, normal mood - Skin Skin exam: Present: warm, dry, intact, normal color. Absent: rash ED Course Vital Signs 02/28/20 02/29/20 22:28 01:01 Temperature 98 F 98.4 F Pulse Rate 122 H 90 Respiratory 18 18 Rate Blood Pressure 122/79 Blood Pressure 114/72 [Left] O2 Sat by Pulse 98 Oximetry - Reevaluation(s) Reevaluation #1: Patient has been applying direct pressure already for 3 hours. Patient states the bleeding has slowed up. Patient will have labs done. Afrin were applied to the right nostril and if bleeding does not stop we will use a Rhino Rocket. Patient agrees to procedures. 02/28/20 22:35 Reevaluation #2: Rhino Rocket was placed without difficulty. Patient's bleeding was controlled. See procedure note. 02/28/20 23:27 Reevaluation #3: No further bleeding noted. Patient denies pain. Patient denies headache. 02/29/20 00:07 Reevaluation #4: I discussed all results and clinical findings with patient. I discussed plan of care with patient. Patient agrees with plan of care. Patient is stable for d ischarge. Patient will be discharged home. Patient given discharge instructions. Patient voiced understanding of discharge instructions. 02/29/20 00:28 - Procedure Description Procedures done: Rhino Rocket placement:. I attempted to use Afrin but the nose continues to bleed. Patient then had a 5.5 cm rapid Rhino rocket placed. Bleeding was immediately controlled once the Rhino Rocket was placed and inflated. Balloon inflated with 8 cc of air. Patient tolerated procedure well. No complications noted. Patient will be discharged after labs are done. Patient will need to see an ENT as soon as possible. ED Medical Decision Making - Lab Data Result diagrams: 02/28/20 22:59 02/28/20 22:59 - Medical Decision Making Patient is a 59-year-old male that presents emergency room with complaints of right nare nosebleed. Patient refused nosebleed. Patient held pressure for a superintendent terminal with no relief. Patient was given Afrin which slowed the bleeding for a moment and then it started back up. Patient then had a Rhino Rocket placed in the right nare. Bleeding was instantly controlled. Patient monitored for multiple hours while we are waiting on labs and the patient's nosebleed never returned. Patient's labs are essentially unremarkable. Patient's coagulation studies are negative. Patient instructed to hold blood thinners and avoid ibuprofen. Patient given discharge instructions. Patient stable for discharge. - Differential Diagnosis Nosebleed, epistasis, digital trauma, blood thinners. Critical Care Time: Yes Critical care time in (mins) excluding proc time.: 35 Critical care attestation.: If time is entered above; I have spent that time in minutes in the direct care of this critically ill patient, excluding procedure time. Critical Care Time: 35 minutes ED Disposition Clinical Impression: Epistaxis Disposition: DC-01 TO HOME OR SELFCARE Is pt being admited?: No Does the pt Need Aspirin: No Condition: Stable Instructions: Nosebleed, Adult, Nosebleed, [id number] Additional Instructions: Patient to follow-up with primary care in 2 to 3 days. Patient to follow-up with ENT in 2 to 3 days. Patient to leave Rhino Rocket in place until cleared by ENT. Patient to rest. Patient to hold blood thinners until cleared by ENT. Patient to increase water. Patient to avoid strenuous exercise or heavy lifting until cleared by ENT and primary care.. Patient to take Tylenol as needed for pain. Patient to return to the ER if condition worsens, changes or new symptoms arise. Referrals: LUDY VAZQUEZ MD [Primary Care Provider] - 2-3 Days ISIDRO SPANN MD [Staff Physician] - 2-3 Days Time of Disposition: 00:25
[2020-02-28] MEDS ORDERED: OXYMETAZOLINE 0.05% NASAL SPRAY NS ONE (22:42)
[2020-02-29] LABS: Hematocrit 40.9 % (35.5-45.6); Mean Corpuscular HGB Conc 34 % (32-34); Mean Corpuscular Volume 91 fl (84-94); Platelet Count 258 K/mm3 (140-440); Red Blood Count 4.48 M/mm3 (3.65-5.03); Red Cell Distribution Width 14.2 % (13.2-15.2)
[2020-02-29 00:08] LABS: INR 1.11 (0.87-1.13); Partial Thromboplastin Time 24.1 Sec. (24.2-36.6)
[2020-02-29 00:16] LABS: Albumin 4.3 g/dL (3.9-5)
[2020-02-29 01:02] VITALS: BP 114/72
== END 2020-02-29 03:15 | disposition home or self-care (01) ==
LOC: ED 22:18
DX: R04.0 Epistaxis (principal); I12.9 Hypertensive chronic kidney disease with stage 1 through stage 4 chronic kidney disease, or unspecified chronic kidney disease; N18.30 Chronic kidney disease, stage 3 unspecified; E78.00 Pure hypercholesterolemia, unspecified; I25.2 Old myocardial infarction; Z95.818 Presence of other cardiac implants and grafts; Z79.899 Other long term (current) drug therapy; Z91.018 Allergy to other foods; Z88.0 Allergy status to penicillin
CPT/HCPCS: 36415; 80053; 85027; 85610; 85730; 99283